=== PATIENT | female | born 1965 | race Caucasian/White ===

== ENCOUNTER 2016-08-12 08:49 | Emergency (ER) | payer BC ==
[2016-08-12 09:20] LABS: APPEARANCE CLEAR (CLEAR); COLOR YELLOW (YELLOW); LEUKOCYTE ESTERASE TRACE (NEGATIVE); SPECIFIC GRAVITY 1.015 (1.005-1.020)
[2016-08-12 09:21] LABS: BILIRUBIN NEGATIVE (NEGATIVE); GLUCOSE 1000 mg/dL (NEGATIVE); KETONE NEGATIVE (NEGATIVE); NITRITE NEGATIVE (NEGATIVE); PROTEIN NEGATIVE (NEGATIVE); UROBILINOGEN NORMAL (NORMAL)
[2016-08-12 09:25] LABS: BACTERIA FEW /hpf (NONE SEEN); EPITHELIAL CELLS OCC /hpf (0-5); MUCUS <1+ /lpf (NONE SEEN); WHITE CELLS - URINE 0-5 /hpf (0-5)
[2016-08-12 09:27] LABS: BASOPHILS 0.3 % (0.0-2.0); EOSINOPHILS 1.7 % (0-7); HEMATOCRIT 36.8 % (36.0-48.0); HEMOGLOBIN 11.8 g/dL (12-16); IMMATURE GRANULOCYTES 0.4 % (0-5); LYMPHOCYTES 16.6 % (15-50); MCH 24.7 pg (26.0-34.0); MCHC 32.1 g/dL (31.0-37.0); MONOCYTES 8.9 % (2-11); NEUTROPHILS 72.1 % (40-80); PLATELET COUNT 330 10x3/uL (130-400); RBC 4.78 10x6/uL (4.00-5.40); RDW 17.1 % (11.5-14.5); WBC 13.7 10x3/uL (4.8-10.8)
[2016-08-12 09:49] LABS: ALBUMIN 3.2 g/dL (3.4-5.0); ALKALINE PHOSPHATASE 64 U/L (46-116); ALT (SGPT) 18 U/L (10-68); AMYLASE - SERUM 46 U/L (25-115); CALC OSMOLALITY 274 mosm/kg (275-300); CALCIUM 9.1 mg/dL (8.5-10.1); CARBON DIOXIDE 23.7 mmol/L (21.0-32.0); CHLORIDE - SERUM 103 mmol/L (98-107); CREATININE - SERUM 0.8 mg/dL (0.6-1.3); GLUCOSE 136 mg/dL (74-106); LIPASE 68 U/L (73-393); POTASSIUM - SERUM 3.6 mmol/L (3.5-5.1); PROTEIN - SERUM 7.6 g/dL (6.4-8.2); SODIUM 137 mmol/L (136-145); UREA NITROGEN 10 mg/dL (7-18); eGFR NON AFRICAN AMERICAN 80 mL/min (90-120)
[2016-08-12 10:16] LABS: UDS - AMPHET NEGATIVE QUAL (NEGATIVE); UDS - BARB NEGATIVE QUAL (NEGATIVE); UDS - BENZO NEGATIVE QUAL (NEGATIVE); UDS - COCAINE NEGATIVE QUAL (NEGATIVE); UDS - METH NEGATIVE QUAL (NEGATIVE); UDS - OPIATE NEGATIVE QUAL (NEGATIVE); UDS - PCP NEGATIVE QUAL (NEGATIVE); UDS - THC NEGATIVE QUAL (NEGATIVE)
== END 2016-08-12 12:45 | disposition home or self-care (01) ==
LOC: D.ER 08:49
PROVIDERS: Family Medicine
DX: K52.9 Noninfective gastroenteritis and colitis, unspecified (principal); I10 Essential (primary) hypertension; E78.5 Hyperlipidemia, unspecified; E11.9 Type 2 diabetes mellitus without complications; K51.90 Ulcerative colitis, unspecified, without complications

== ENCOUNTER → 2017-04-23 15:31 | Outpatient (CLI) | payer MEDICAID | END | disposition home or self-care (01) | LOC: D.MAMMO 04-19 16:00 | DX: Z12.31 Encounter for screening mammogram for malignant neoplasm of breast (principal) ==

== ENCOUNTER → 2017-06-12 15:10 | Outpatient (CLI) | payer MEDICAID | END | disposition home or self-care (01) | LOC: D.RAD 14:45 | DX: R05 Cough (principal) ==

== ENCOUNTER 2017-08-29 06:30 | Day surgery (SDC) | payer MEDICAID ==
[2017-08-28 13:13] LABS: HEMATOCRIT 41.2 % (36.0-48.0); HEMOGLOBIN 13.5 g/dL (12-16); MCH 26.8 pg (26.0-34.0); MCHC 32.8 g/dL (31.0-37.0); MCV 81.7 fL (80.0-100.0); MEAN PLATELET VOLUME 11.1 fL (7.4-10.4); RBC 5.04 10x6/uL (4.00-5.40); RDW 14.6 % (11.5-14.5); WBC 5.6 10x3/uL (4.8-10.8)
[2017-08-28 13:45] LABS: ANION GAP 14.5 mmol/L (8-16); CALCIUM 9.9 mg/dL (8.5-10.1); CARBON DIOXIDE 25.2 mmol/L (21.0-32.0); CREATININE - SERUM 0.9 mg/dL (0.6-1.3); POTASSIUM - SERUM 4.7 mmol/L (3.5-5.1)
[~2017-08-29] VITALS: Ht 177.8 cm; Wt 101.6 kg
[~2017-08-29 06:30] MED LIST: ALDACTONE50 MG PO; CO Q-10100 MG PO; DIGESTIVE ADVANTAGE PO; ESTRACE 0.5 MG0.5 MG PO; GABAPENTIN100 MG PO; GLIMEPIRIDE4 MG PO; GLUCOPHAGE1000 MG PO; IBUPROFEN800 MG PO; OMEPRAZOLE20 M1 PO; SYMBICORT 16010.2 GM INH; TRICOR145 MG PO; VENTOLIN HFA18 GM INH; ZESTRIL10 MG PO; ZOCOR40 MG PO; ZYRTEC10 MG PO
[2017-08-29 07:26] VITALS: BP 126/69; Ht 177.8 cm; Wt 101.6 kg
[2017-08-29] MEDS ORDERED: CYCLOBENZAPRINE10 MG PO (10:16)
[2017-08-29] MEDS ORDERED: HYDROCODON-ACE1 EAC7 PO (10:16)
== END 2017-08-29 12:50 | disposition home or self-care (01) ==
LOC: D.OPS 06:30 → D.PAN 08:00 → D.OPS 08:30 → D.PAN 08:30 → D.OPS 12:50
PROVIDERS: Anesthesiology
DX: K43.0 Incisional hernia with obstruction, without gangrene (principal); K66.0 Peritoneal adhesions (postprocedural) (postinfection); Z01.812 Encounter for preprocedural laboratory examination

== ENCOUNTER 2018-08-04 16:38 | Emergency (ER) | payer MEDICAID ==
[~2018-08-04] VITALS: Ht 177.8 cm; Wt 98.2 kg
[~2018-08-04 16:38] MED LIST changes: +CYCLOBENZAPRINE10 MG PO; +HYDROCODON-ACE1 EAC7 PO
[2018-08-04 16:42] VITALS: Ht 177.8 cm; Wt 98.2 kg
[2018-08-04] MEDS ORDERED: ELIQUIS5 MG PO (16:45)
[2018-08-04] MEDS ORDERED: ZETIA10 MG PO (16:45)
[2018-08-04] MEDS ORDERED: GLIPIZIDE10 MG PO (16:46)
[2018-08-04] MEDS ORDERED: LEVEMIR IN100 UNITS/ SQ (16:47)
[2018-08-04] MEDS ORDERED: NEURONTIN 300300 MG PO (16:48)
[2018-08-04] MEDS ORDERED: GABAPENTIN100 MG PO (16:49)
[2018-08-04] MEDS ORDERED: FISH OIL 1,0001 CA1 PO (16:50)
[2018-08-04 18:00] LABS: BASOPHILS 0.4 % (0-2); EOSINOPHILS 0.9 % (0-7); HEMATOCRIT 36.4 % (36.0-48.0); IMMATURE GRANULOCYTES 0.3 % (0-5); LYMPHOCYTES 34.3 % (15-50); MCH 26.3 pg (26.0-34.0); MCV 79.6 fL (80.0-100.0); MEAN PLATELET VOLUME 10.1 fL (7.4-10.4); MONOCYTES 9.8 % (2-11); NEUTROPHILS 54.3 % (40-80); RBC 4.57 10x6/uL (4.00-5.40); RDW 14.2 % (11.5-14.5); WBC 10.7 10x3/uL (4.8-10.8)
[2018-08-04 18:01] LABS: PLATELET COUNT 381 10x3/uL (130-400)
[2018-08-04 18:14] LABS: ALBUMIN 3.4 g/dL (3.4-5.0); ANION GAP 10.6 mmol/L (8-16); BILIRUBIN - TOTAL 0.39 mg/dL (0.2-1.3); CALCIUM 9.5 mg/dL (8.5-10.1); CARBON DIOXIDE 27.6 mmol/L (21.0-32.0); CREATININE - SERUM 0.9 mg/dL (0.6-1.3); POTASSIUM - SERUM 3.2 mmol/L (3.5-5.1); PROTEIN - SERUM 7.9 g/dL (6.4-8.2)
[2018-08-04] MEDS ORDERED: AMOXICILLIN875 MG PO (19:54)
[2018-08-04] MEDS ORDERED: HYDROCODON-ACET15 ML PO (19:54)
[2018-08-04 20:14] VITALS: BP 142/81
== END 2018-08-04 20:14 | disposition home or self-care (01) ==
LOC: D.ER 16:38
PROVIDERS: Family Medicine
DX: J03.90 Acute tonsillitis, unspecified (principal)

== ENCOUNTER 2018-08-05 15:08 | Emergency (ER) | payer MEDICAID ==
[~2018-08-05] VITALS: Ht 177.8 cm; Wt 97.7 kg
[~2018-08-05 15:08] MED LIST changes: +AMOXICILLIN875 MG PO; +ELIQUIS5 MG PO; +FISH OIL 1,0001 CA1 PO; +GLIPIZIDE10 MG PO; +HYDROCODON-ACET15 ML PO; +LEVEMIR IN100 UNITS/ SQ; +NEURONTIN 300300 MG PO; +ZETIA10 MG PO
[2018-08-05 15:13] VITALS: Ht 177.8 cm; Wt 97.7 kg
[2018-08-05 21:30] VITALS: BP 139/82
== END 2018-08-05 23:08 | disposition other institution (70) ==
LOC: D.ER 15:08
DX: J36 Peritonsillar abscess (principal); R13.10 Dysphagia, unspecified

== ENCOUNTER 2018-10-21 13:13 | Inpatient (IN) | payer MEDICAID ==
[~2018-10-21] VITALS: Ht 177.8 cm; Wt 98.0 kg
[2018-10-21] MEDS ORDERED: [UNRECOGNIZED DRUG - OTHER] (13:36)
[2018-10-21 14:10] LABS: BASOPHILS 0.2 % (0-2); EOSINOPHILS 0 % (0-7); HEMATOCRIT 37.9 % (36.0-48.0); HEMOGLOBIN 12.6 g/dL (12-16); IMMATURE GRANULOCYTES 0.2 % (0-5); LYMPHOCYTES 14.4 % (15-50); MCH 25.9 pg (26.0-34.0); MCHC 33.2 g/dL (31.0-37.0); MCV 77.8 fL (80.0-100.0); MEAN PLATELET VOLUME 10.4 fL (7.4-10.4); MONOCYTES 3.9 % (2-11); NEUTROPHILS 81.3 % (40-80); PLATELET COUNT 354 10x3/uL (130-400); RBC 4.87 10x6/uL (4.00-5.40); RDW 15.9 % (11.5-14.5); WBC 10.4 10x3/uL (4.8-10.8)
[2018-10-21 14:29] LABS: APPEARANCE CLEAR (CLEAR); BILIRUBIN NEGATIVE (NEGATIVE); COLOR YELLOW (YELLOW); GLUCOSE NEGATIVE (NEGATIVE); KETONE MODERATE mg/dL (NEGATIVE); NITRITE NEGATIVE (NEGATIVE); PROTEIN NEGATIVE (NEGATIVE); UROBILINOGEN NORMAL (NORMAL)
[2018-10-21 14:30] LABS: AMORPHOUS SEDIMENT <1+ /lpf (NONE SEEN); EPITHELIAL CELLS OCC /hpf (0-5); RED CELLS - URINE 0-5 /hpf (0-5); WHITE CELLS - URINE 0-5 /hpf (0-5)
[2018-10-21 14:37] LABS: ALBUMIN 4.1 g/dL (3.4-5.0); ALKALINE PHOSPHATASE 55 U/L (46-116); ALT (SGPT) 26 U/L (10-68); CALC OSMOLALITY 274 mosm/kg (275-300); CALCIUM 9.8 mg/dL (8.5-10.1); CARBON DIOXIDE 26.4 mmol/L (21.0-32.0); CHLORIDE - SERUM 102 mmol/L (98-107); CREATININE - SERUM 0.8 mg/dL (0.6-1.3); POTASSIUM - SERUM 3.8 mmol/L (3.5-5.1); PROTEIN - SERUM 8.2 g/dL (6.4-8.2); SODIUM 137 mmol/L (136-145); UREA NITROGEN 8 mg/dL (7-18); eGFR NON AFRICAN AMERICAN 80 mL/min (90-120)
[2018-10-21 14:38] LABS: GLUCOSE 160 mg/dL (74-106)
[2018-10-21 14:40] LABS: AMYLASE - SERUM 48 U/L (25-115); LIPASE 59 U/L (73-393); TROPONIN-I < 0.017 ng/mL (0.000-0.060)
--- NOTE | 2018-10-21 20:00 | NUR ---
VERBAL ORDER FROM DR FISCHER TO NOT PLACE NG TUBE DUE TO HER HAVING BOWEL SOUNDS AND ABD BEING SOFT.
[2018-10-21 21:57] VITALS: BP 140/68; BMI 31.0
[2018-10-21] MEDS ORDERED: OZEMPIC (23:32)
[2018-10-22 05:58] VITALS: BP 133/83
[2018-10-22 06:12] LABS: BASOPHILS 0.2 % (0-2); EOSINOPHILS 0.2 % (0-7); HEMATOCRIT 32.4 % (36.0-48.0); HEMOGLOBIN 10.7 g/dL (12-16); IMMATURE GRANULOCYTES 0.1 % (0-5); LYMPHOCYTES 19.2 % (15-50); MCH 25.5 pg (26.0-34.0); MCV 77.3 fL (80.0-100.0); MONOCYTES 6.3 % (2-11); PLATELET COUNT 331 10x3/uL (130-400); RBC 4.19 10x6/uL (4.00-5.40); RDW 15.8 % (11.5-14.5); WBC 10.3 10x3/uL (4.8-10.8)
[2018-10-22 06:29] LABS: ALBUMIN 3.4 g/dL (3.4-5.0); ALKALINE PHOSPHATASE 42 U/L (46-116); BILIRUBIN - TOTAL 0.44 mg/dL (0.2-1.3); CALC OSMOLALITY 282 mosm/kg (275-300); CALCIUM 8.9 mg/dL (8.5-10.1); CARBON DIOXIDE 24.4 mmol/L (21.0-32.0); CHLORIDE - SERUM 105 mmol/L (98-107); CREATININE - SERUM 0.8 mg/dL (0.6-1.3); GLUCOSE 144 mg/dL (74-106); MAGNESIUM - SERUM 1.5 mg/dL (1.8-2.4); POTASSIUM - SERUM 3.5 mmol/L (3.5-5.1); PROTEIN - SERUM 6.5 g/dL (6.4-8.2); SODIUM 141 mmol/L (136-145); UREA NITROGEN 10 mg/dL (7-18); eGFR NON AFRICAN AMERICAN 80 mL/min (90-120)
[2018-10-22 06:31] LABS: ALT (SGPT) 19 U/L (10-68)
[2018-10-22 08:12] VITALS: BP 145/81
--- NOTE | 2018-10-22 09:47 | NUR ---
PATIENT TEMP AT THIS TIME 99.1. WILL CONTINUE TO MONITOR
--- NOTE | 2018-10-22 10:43 | NUR ---
PATIENT UP IN CHAIR. FAMILY IN ROOM. DENIES ANY NEEDS. CL AND PHONE IN REACH. WCTM
[2018-10-22 12:33] VITALS: BMI 30.9
[2018-10-22 12:54] VITALS: BP 156/86
[2018-10-22 13:13] VITALS: Ht 177.8 cm; Wt 98.0 kg
--- NOTE | 2018-10-22 15:32 | MORECARE ---
CASE MANAGEMENT DISCHARGE SUMMARY PATIENT: JUANCHO PEREZ UNIT: [id number] ADM DATE: 10/21/18 AGE: 53 : 67 SEX: F ROOM/BED: D.2203 AUTHOR: NATIVIDAD,DOC PHYSICIAN: REFERRING PHYSICIAN: CURT FISCHER DO DATE OF SERVICE: 10/22/18 Discharge Plan Patient Name: JUANCHO PEREZ Facility: [facility]:[place] : 1965 Planned Disposition: Home or Self Care Anticipated Discharge Date: Discharge Date: Expected LOS: Initial Reviewer: [email or web address] Initial Review Date: 10/21/2018 Generated: 10/22/18 4:32 pm Comments DCP- Discharge Planning Updated by [email or web address]: Quin Antoine on 10/22/18 2:[address] Patient Name: JUANCHO PEREZ Admission Status: ER Accout number: [id number] Admission Date: 10-21-2018 : 1965 Admission Diagnosis: Attending: CURT FISCHER Current LOS: 1 Anticipated DC Date: Planned Disposition: Home or Self Care Primary Insurance: [employer] [facility] OPTIONS JONATHON Discharge Planning Comments: CM met with patient to complete initial dc planning assessment. CM educated patient on the CM role and verbal consent given by patient to complete assessment. Patient lives at home with her where she is independent with her care. At discharge patient plans to return home and feels this is a safe discharge. Her will be her starting gate driver home. CM discussed availability of home health, rehab services, and medical equipment. Patient denied known discharge needs at this time. CM will continue to follow and will assist as needed with dc plans/needs. Multimedia Author: Quin Antoine DCPIA - Discharge Planning Initial Assessment Updated by [id number]: Quin Antoine on 10/22/18 3:30 pm * Is the patient Alert and Oriented? Yes * How many steps to enter\exit or inside your home? * PCP Laurita Gonzalez- [facility] * Pharmacy [email or web address] on [facility] * Preadmission Environment Home with Family * ADLs Independent * Equipment None * List name and contact numbers for known caregivers / representatives who currently or will assist patient after discharge: Maxi () Maddi Avery [phone] * Verbal permission to speak to the caregivers and representatives has been obtained from the patient. N/A * Community resources currently utilized None * Additional services required to return to the preadmission environment? No * Can the patient safely return to the preadmission environment? Yes * Has this patient been hospitalized within the prior 30 days at any hospital? No Patient Name: JUANCHO PEREZ Page [phone] at 1532 All edits/amendments must be made on the electronic document DICTATION DATE: 10/22/18 1531 MIRROR MAKER: RANDY 10/22/18 1531 RPT#: [id number] DC DATE: STATUS: ADM IN [facility] [address] [place] [address] END OF REPORT
[2018-10-22 16:34] VITALS: BP 138/68
[2018-10-22 20:55] VITALS: BP 133/72
--- NOTE | 2018-10-22 21:00 | NUR ---
SUPINE IN BED A&O X 4. REPORTS PAIN LEVEL OF 6/10. FSBS 153. HAD QUESTIONS ABOUT NOT GETTING OTHER INSULINS. INFORMED PT THAT WITH HER NOT EATING, HER SUGAR IS LIKELY TO DROP IF SHE CONTINUES RECIEVING ALL HER OTHER SCHEDULED INSULINS. PT VERBALIZED UNDERSTANDING. WILL CONTINUE TO MONITOR.
[2018-10-23 01:22] VITALS: BP 124/64
[2018-10-23 05:05] LABS: BASOPHILS 0.1 % (0-2); EOSINOPHILS 0.2 % (0-7); HEMATOCRIT 32.6 % (36.0-48.0); HEMOGLOBIN 10.6 g/dL (12-16); IMMATURE GRANULOCYTES 0.2 % (0-5); MCH 25.1 pg (26.0-34.0); MCHC 32.5 g/dL (31.0-37.0); MCV 77.1 fL (80.0-100.0); MONOCYTES 8.2 % (2-11); NEUTROPHILS 78.3 % (40-80); PLATELET COUNT 312 10x3/uL (130-400); RBC 4.23 10x6/uL (4.00-5.40); WBC 12.7 10x3/uL (4.8-10.8)
[2018-10-23 05:32] LABS: APTT 30.7 SECONDS (22.8-39.4); INR 1.32 (0.85-1.17); PROTIME 15.8 SECONDS (11.6-15.0)
[2018-10-23 05:34] LABS: ALBUMIN 2.8 g/dL (3.4-5.0); ALKALINE PHOSPHATASE 43 U/L (46-116); BILIRUBIN - TOTAL 0.52 mg/dL (0.2-1.3); CALC OSMOLALITY 279 mosm/kg (275-300); CALCIUM 8.7 mg/dL (8.5-10.1); CARBON DIOXIDE 23.7 mmol/L (21.0-32.0); CHLORIDE - SERUM 103 mmol/L (98-107); CREATININE - SERUM 0.7 mg/dL (0.6-1.3); GLUCOSE 148 mg/dL (74-106); MAGNESIUM - SERUM 1.7 mg/dL (1.8-2.4); POTASSIUM - SERUM 3.1 mmol/L (3.5-5.1); PROTEIN - SERUM 6.7 g/dL (6.4-8.2); SODIUM 139 mmol/L (136-145); UREA NITROGEN 10 mg/dL (7-18); eGFR NON AFRICAN AMERICAN > 90 mL/min (90-120)
[2018-10-23 05:35] LABS: ALT (SGPT) 13 U/L (10-68)
[2018-10-23 05:55] VITALS: BP 150/84
--- NOTE | 2018-10-23 09:00 | NUR ---
ASSESSMENT PER FLOW SHEET. PT IS WITHOUT DISTRESS.MONITOR
[2018-10-23 09:45] VITALS: BP 149/83
--- NOTE | 2018-10-23 10:35 | NUR ---
DR MEHTA TO SEE PT. CONSENTS TO CHART
--- NOTE | 2018-10-23 11:45 | NUR ---
TO OR VIA BED
[2018-10-23 14:12] VITALS: BP 148/86
[2018-10-23 15:53] VITALS: BP 145/80
--- NOTE | 2018-10-23 15:59 | NUR ---
BACK FROM PACU. VSS,SEE GRAPHICS.AWAKENS INT.LAP SITES TO ABD X4 INTACT. SHERICE RLQ OF ABDOMEN WITH MINIMAL RED DRAINAGE IN BULB.MONITOR
--- NOTE | 2018-10-23 19:15 | NUR ---
PATIENT REFUSED BREATHING TREATMENT, STATED THAT SHE WAS NOT FEELING WELL, THAT SHE HAD JUST GOT BACK FROM SURGERY
--- NOTE | 2018-10-23 20:00 | NUR ---
PT SITTING UP IN BED WITHOUT DISTRESS, ALERT AND ORIENTED. STATES PAIN 4/10 IN ABD. IV RIGHT FA INFUSING NS @ 125. 4 LAP SITES TO ABD CDI, SHERICE DRAIN TO RLQ WITH BLOODY DRAINAGE. PT UP AD RICCARDO AND VOIDING WITHOUT DIFFICULTY. TOLERATED ADVANCING DIET. DENIES OTHER NEEDS. CL IN REACH, WILL CTM
--- NOTE | 2018-10-23 20:36 | NUR ---
TOLERTAING CLEAR LIQUID DIET. PT IS WITHOUT DISTRESS.CONT PLAN OF CARE
[2018-10-23 20:51] VITALS: BP 143/99
[2018-10-24 01:35] VITALS: BP 121/75
[2018-10-24 05:46] LABS: BASOPHILS 0.1 % (0-2); EOSINOPHILS 0.2 % (0-7); HEMATOCRIT 28.1 % (36.0-48.0); HEMOGLOBIN 8.8 g/dL (12-16); IMMATURE GRANULOCYTES 0.3 % (0-5); LYMPHOCYTES 12.5 % (15-50); MCH 24.6 pg (26.0-34.0); MCHC 31.3 g/dL (31.0-37.0); MCV 78.7 fL (80.0-100.0); MEAN PLATELET VOLUME 10.7 fL (7.4-10.4); MONOCYTES 10.3 % (2-11); NEUTROPHILS 76.6 % (40-80); PLATELET COUNT 290 10x3/uL (130-400); RBC 3.57 10x6/uL (4.00-5.40); RDW 16.3 % (11.5-14.5); WBC 11.2 10x3/uL (4.8-10.8)
[2018-10-24 06:31] VITALS: BP 130/74
[2018-10-24 06:36] LABS: ALBUMIN 2.3 g/dL (3.4-5.0); ALKALINE PHOSPHATASE 41 U/L (46-116); BILIRUBIN - TOTAL 0.38 mg/dL (0.2-1.3); CALC OSMOLALITY 282 mosm/kg (275-300); CALCIUM 8.2 mg/dL (8.5-10.1); CARBON DIOXIDE 24.5 mmol/L (21.0-32.0); CHLORIDE - SERUM 107 mmol/L (98-107); CREATININE - SERUM 0.6 mg/dL (0.6-1.3); GLUCOSE 109 mg/dL (74-106); MAGNESIUM - SERUM 1.9 mg/dL (1.8-2.4); POTASSIUM - SERUM 3.4 mmol/L (3.5-5.1); SODIUM 142 mmol/L (136-145); UREA NITROGEN 9 mg/dL (7-18); eGFR NON AFRICAN AMERICAN > 90 mL/min (90-120)
[2018-10-24 06:38] LABS: ALT (SGPT) 58 U/L (10-68)
[2018-10-24 10:10] VITALS: BP 152/91
--- NOTE | 2018-10-24 12:30 | NUR ---
CAME TO ME WITH THE CONCERN THAT HIS WAS NOT ABLE TO FEED HERSELF BECAUSE OF THE IV BEING IN HER LEFT HAND. SHE DID NOT BRING THIS CONCERN UP TO ME. HE MENTIONED THAT SHE NEEDED HELP TO THE BATHROOM. I AGREED. I ALSO TOLD HIM I WAS JUST IN THERE TO HELP HER TO THE RESTROOM. SAID THAT I WOULD SALINE LOCK HER SO SHE COULD EAT EASIER AND SEE IF THAT WOULD HELP.
--- NOTE | 2018-10-24 13:22 | NUR ---
Nutrition Follow Up: Chart reviewed. Pt is POD 1 Lap Teresa. Diet just advanced to ADA. Wt stable Labs reviewed Meds noted including Flagyl Rec continue current diet as tolerated. RD following.
[2018-10-24 14:30] VITALS: BP 121/79
[2018-10-24 17:59] VITALS: BP 153/89
[2018-10-24 19:58] VITALS: BP 168/85
[2018-10-25] VITALS (7 sets, daily range): BP systolic 150–186; BP diastolic 83–103
[2018-10-25 03:55] LABS: BASOPHILS 0.3 % (0-2); EOSINOPHILS 4.9 % (0-7); HEMATOCRIT 23.9 % (36.0-48.0); IMMATURE GRANULOCYTES 0.3 % (0-5); LYMPHOCYTES 20.1 % (15-50); MCH 25.6 pg (26.0-34.0); MCHC 33.5 g/dL (31.0-37.0); MCV 76.4 fL (80.0-100.0); MEAN PLATELET VOLUME 9.6 fL (7.4-10.4); MONOCYTES 9.3 % (2-11); NEUTROPHILS 65.1 % (40-80); PLATELET COUNT 315 10x3/uL (130-400); RBC 3.13 10x6/uL (4.00-5.40); RDW 15.9 % (11.5-14.5); WBC 11.7 10x3/uL (4.8-10.8)
[2018-10-25 04:10] LABS: ALBUMIN 2.2 g/dL (3.4-5.0); ALKALINE PHOSPHATASE 40 U/L (46-116); ALT (SGPT) 45 U/L (10-68); BILIRUBIN - TOTAL 0.35 mg/dL (0.2-1.3); CALCIUM 8.1 mg/dL (8.5-10.1); CARBON DIOXIDE 28.7 mmol/L (21.0-32.0); CHLORIDE - SERUM 106 mmol/L (98-107); CREATININE - SERUM 0.7 mg/dL (0.6-1.3); MAGNESIUM - SERUM 2.2 mg/dL (1.8-2.4); POTASSIUM - SERUM 3.2 mmol/L (3.5-5.1); SODIUM 143 mmol/L (136-145); UREA NITROGEN 8 mg/dL (7-18); eGFR NON AFRICAN AMERICAN > 90 mL/min (90-120)
[2018-10-25 04:13] LABS: CALC OSMOLALITY 286 mosm/kg (275-300); GLUCOSE 172 mg/dL (74-106)
--- NOTE | 2018-10-25 08:01 | NUR ---
AWAKE AND ALERT. UP IN CHAIR AT BEDSIDE. REQUESTED AND GIVNE 4MG MORPHINE SLOW IVP FOR C/O ABDOMINAL AND BACK PAIN LEVEL 8. WILL MONITOR.
--- NOTE | 2018-10-25 09:26 | NUR ---
AWAKE AND ALERT. ORIENTED X3. REPORTS PAIN AT LEVEL 6 NOW. WILL CONTINUE TO MONITOR. CALLED ESEQUIEL FOLEY APN RE BP MEDS. NEW ORDERS RECEIVED. LUNGS ARE CLEAR BILATERALLY, NO COUGH NOTED. SKIN IS INTACT WTIHOUT REDNESS EXCEPT 4 SMALL INSERTION SITES TO ABDOMEN WHICH ARE CLEAN AND DYR WITH SS IN PLACE. IV TO RIGHT AC IS PATETN WITHOUT REDNESS AT INSERTION SITE. BP IS 186/102 MANUAL. GIVEN APRESOLINE IVP PER ORDERS. WILL MONITOR. BREAKFAST SERVED IN ROOM. NOT EATING AT THIS TIME. DENIES NEEDS.
--- NOTE | 2018-10-25 14:00 | NUR ---
REQUESTED AND GIVEN 4MG MORPHINE SLOW IVP. BECAME NAUSEATED WITH DOSE. GIVEN 4MG ZOFRAN SLOW IVP FOR SAME. WILL MONITOR.
--- NOTE | 2018-10-25 14:46 | NUR ---
SHERICE D/C WITHOUT DIFFICULTY INTACT. DENIES NEEDS. NO NAUSEA AT THIS TIME.
[2018-10-26] VITALS: BP 148/88
[2018-10-26 04:00] VITALS: BP 153/88
[2018-10-26 06:15] LABS: BASOPHILS 0.3 % (0-2); EOSINOPHILS 7.9 % (0-7); HEMATOCRIT 24.1 % (36.0-48.0); HEMOGLOBIN 7.9 g/dL (12-16); IMMATURE GRANULOCYTES 0.4 % (0-5); MCH 25.1 pg (26.0-34.0); MCHC 32.8 g/dL (31.0-37.0); MCV 76.5 fL (80.0-100.0); MEAN PLATELET VOLUME 10.1 fL (7.4-10.4); NEUTROPHILS 58.4 % (40-80); PLATELET COUNT 372 10x3/uL (130-400); RBC 3.15 10x6/uL (4.00-5.40); RDW 16.4 % (11.5-14.5); WBC 10.3 10x3/uL (4.8-10.8)
[2018-10-26 06:54] LABS: ALBUMIN 2.2 g/dL (3.4-5.0); ALKALINE PHOSPHATASE 42 U/L (46-116); ALT (SGPT) 34 U/L (10-68); BILIRUBIN - TOTAL 0.36 mg/dL (0.2-1.3); CALC OSMOLALITY 281 mosm/kg (275-300); CALCIUM 8.4 mg/dL (8.5-10.1); CARBON DIOXIDE 27.3 mmol/L (21.0-32.0); CHLORIDE - SERUM 106 mmol/L (98-107); CREATININE - SERUM 0.6 mg/dL (0.6-1.3); GLUCOSE 134 mg/dL (74-106); MAGNESIUM - SERUM 2.4 mg/dL (1.8-2.4); POTASSIUM - SERUM 3.2 mmol/L (3.5-5.1); PROTEIN - SERUM 5.9 g/dL (6.4-8.2); SODIUM 142 mmol/L (136-145); UREA NITROGEN 5 mg/dL (7-18); eGFR NON AFRICAN AMERICAN > 90 mL/min (90-120)
[2018-10-26 09:43] VITALS: BP 158/89
[2018-10-26] MEDS ORDERED: HYDROCODON-ACE1 EAC7 PO (15:03)
--- NOTE | 2018-10-26 17:39 | NUR ---
DISCHARGE PAPERWORK SIGNED, ALL QUESTIONS ANSWERED. IV TO RIGHT AC DC'D, TIP INTACT. ESCORTED OUT BY WHEELCHAIR.
--- NOTE | 2018-10-29 13:10 | MORECARE ---
CASE MANAGEMENT DISCHARGE SUMMARY PATIENT: JUANCHO PEREZ UNIT: [id number] ADM DATE: 10/21/18 AGE: 53 : 67 SEX: F ROOM/BED: D.2203 AUTHOR: NATIVIDADDOC PHYSICIAN: REFERRING PHYSICIAN: CURT FISCHER DO DATE OF SERVICE: 10/29/18 Discharge Plan Patient Name: JUANCHO PEREZ Facility: [facility]:[place] : 1965 Planned Disposition: Home or Self Care Anticipated Discharge Date: Discharge Date: 10/26/2018 Expected LOS: 0 Initial Reviewer: [email or web address] Initial Review Date: 10/21/2018 Generated: 10/29/18 2:09 pm DCP- Discharge Planning Updated by [email or web address]: Quin Antoine on 10/22/18 2:[address] Patient Name: JUANCHO PEREZ Admission Status: ER Accout number: [id number] Admission Date: 10-21-2018 : 1965 Admission Diagnosis: Attending: CURT FISCHER Current LOS: 1 Anticipated DC Date: Planned Disposition: Home or Self Care Primary [facility] Discharge Planning Comments: CM met with patient to complete initial dc planning assessment. CM educated patient on the CM role and verbal consent given by patient to complete assessment. Patient lives at home with her where she is independent with her care. At discharge patient plans to return home and feels this is a safe discharge. Her will be her residential recycle driver home. CM discussed availability of home health, rehab services, and medical equipment. Patient denied known discharge needs at this time. CM will continue to follow and will assist as needed with dc plans/needs. Pad Cutter: Quin Antoine DCPIA - Discharge Planning Initial Assessment Updated by [email or web address]: Quin Antoine on 10/22/18 3:30 pm * Is the patient Alert and Oriented? Yes * How many steps to enter\exit or inside your home? * PCP Laurita Gonzalez- [facility] * Pharmacy [facility] * Preadmission Environment Home with Family * ADLs Independent * Equipment None * List name and contact numbers for known caregivers / representatives who currently or will assist patient after discharge: Maxi () Maddi Avery [phone] * Verbal permission to speak to the caregivers and representatives has been obtained from the patient. N/A * Community resources currently utilized None * Additional services required to return to the preadmission environment? No * Can the patient safely return to the preadmission environment? Yes * Has this patient been hospitalized within the prior 30 days at any hospital? No Last DP export: 10/22/18 2:32 p Patient Name: JUANCHO PEREZ Page [phone] at 1310 All edits/amendments must be made on the electronic document DICTATION DATE: 10/29/18 1309 MULTIMEDIA SERVICES MANAGER: RANDY 10/29/18 1309 RPT#: [id number] NM DATE:10/26/18 STATUS: DIS IN [facility] [address] [place] [address] END OF REPORT
== END 2018-10-26 17:41 | disposition home or self-care (01) | DRG 337 ==
LOC: D.ER 13:13 → D.MS 18:50
PROVIDERS: Emergency Medicine; Surgery; ADMIT Family Medicine; ATTEND Family Medicine
PROC: 0DNW4ZZ Release Peritoneum, Percutaneous Endoscopic Approach (ICD-10-PCS; 2018-10-23)
PROC: 0FT44ZZ Resection of Gallbladder, Percutaneous Endoscopic Approach (ICD-10-PCS; principal; 2018-10-23 11:45)
DX: K56.52 Intestinal adhesions [bands] with complete obstruction (principal); I10 Essential (primary) hypertension; E11.69 Type 2 diabetes mellitus with other specified complication; K81.1 Chronic cholecystitis; D64.9 Anemia, unspecified

== ENCOUNTER 2019-01-02 15:37 | Emergency (ER) | payer MEDICAID ==
[~2019-01-02] VITALS: Ht 177.8 cm; Wt 90.9 kg
[~2019-01-02 15:37] MED LIST changes: +OZEMPIC; +[UNRECOGNIZED DRUG - OTHER]
[2019-01-02 15:51] VITALS: Ht 177.8 cm; Wt 90.9 kg
[2019-01-02] MEDS ORDERED: [UNRECOGNIZED DRUG - OTHER] SQ (15:55)
[2019-01-02] MEDS ORDERED: ROBAXIN500 MG PO (18:36)
[2019-01-02] MEDS ORDERED: TORADOL10 MG PO (18:36)
[2019-01-02 18:52] VITALS: BP 138/84
== END 2019-01-02 18:52 | disposition home or self-care (01) ==
LOC: D.ER 15:37
DX: S39.012A Strain of muscle, fascia and tendon of lower back, initial encounter (principal); V43.52XA Car driver injured in collision with other type car in traffic accident, initial encounter; Y93.89 Activity, other specified; Y92.89 Other specified places as the place of occurrence of the external cause; M17.12 Unilateral primary osteoarthritis, left knee

== ENCOUNTER 2019-01-16 22:46 | Inpatient (IN) | payer MEDICAID ==
[~2019-01-16] VITALS: Ht 177.8 cm; Wt 92.5 kg
[~2019-01-16 22:46] MED LIST changes: +ROBAXIN500 MG PO; +TORADOL10 MG PO; +[UNRECOGNIZED DRUG - OTHER] SQ
[2019-01-16 23:06] LABS: BASOPHILS 0.1 % (0-2); EOSINOPHILS 0.1 % (0-7); HEMATOCRIT 37.5 % (36.0-48.0); HEMOGLOBIN 12.6 g/dL (12-16); IMMATURE GRANULOCYTES 0.3 % (0-5); LYMPHOCYTES 8.8 % (15-50); MCH 25.6 pg (26.0-34.0); MCHC 33.6 g/dL (31.0-37.0); MCV 76.2 fL (80.0-100.0); MEAN PLATELET VOLUME 9.7 fL (7.4-10.4); MONOCYTES 5.5 % (2-11); NEUTROPHILS 85.2 % (40-80); PLATELET COUNT 431 10x3/uL (130-400); RBC 4.92 10x6/uL (4.00-5.40); RDW 17.4 % (11.5-14.5); WBC 17.7 10x3/uL (4.8-10.8)
[2019-01-16 23:21] LABS: ALBUMIN 4.1 g/dL (3.4-5.0); ALKALINE PHOSPHATASE 67 U/L (46-116); ALT (SGPT) 23 U/L (10-68); CALC OSMOLALITY 272 mosm/kg (275-300); CALCIUM 10.8 mg/dL (8.5-10.1); CARBON DIOXIDE 27.8 mmol/L (21.0-32.0); CHLORIDE - SERUM 96 mmol/L (98-107); POTASSIUM - SERUM 4.6 mmol/L (3.5-5.1); PROTEIN - SERUM 8.7 g/dL (6.4-8.2); SODIUM 134 mmol/L (136-145); UREA NITROGEN 12 mg/dL (7-18); eGFR NON AFRICAN AMERICAN 61 mL/min (90-120)
[2019-01-16 23:22] LABS: GLUCOSE 195 mg/dL (74-106)
[2019-01-16 23:25] LABS: AMYLASE - SERUM 62 U/L (25-115); LIPASE 81 U/L (73-393); TROPONIN-I < 0.017 ng/mL (0.000-0.060)
--- NOTE | 2019-01-17 00:48 | NUR ---
PT TO RADIOLOGY.
--- NOTE | 2019-01-17 01:07 | NUR ---
PT RETURNED FROM RADIOLOGY.
[2019-01-17 01:14] LABS: APPEARANCE CLOUDY (CLEAR); BILIRUBIN NEGATIVE (NEGATIVE); COLOR YELLOW (YELLOW); GLUCOSE 50 mg/dL (NEGATIVE); KETONE NEGATIVE (NEGATIVE); NITRITE NEGATIVE (NEGATIVE); PROTEIN 1+ mg/dL (NEGATIVE); UROBILINOGEN NORMAL (NORMAL)
[2019-01-17 01:15] LABS: AMORPHOUS SEDIMENT >1+ /lpf (NONE SEEN); BACTERIA MODERATE /hpf (NONE SEEN); EPITHELIAL CELLS 0-5 /hpf (0-5); HYALINE CAST 0-5 /lpf (NONE SEEN); MUCUS <1+ /lpf (NONE SEEN); RED CELLS - URINE 0-5 /hpf (0-5); WHITE CELLS - URINE 0-5 /hpf (0-5)
--- NOTE | 2019-01-17 03:15 | NUR ---
PT ARRIVED TO FLOOR AOX4, AMBULATED TO BED WITHOUT DIFFICULTY. PAIN IN ABD 7/10. ABD DISTENDED, ABSENT IN UPPER QUADS, HYPO IN LOWER. PT NAUSEOUS AND GAGGING BUT NOT HAVING ANY EMESIS. IV LEFT AC INFUSING NS @ 200. REMINDED PT SHE IS NPO, VERBALIZED UNDERSTANDING. DENIES NEEDS. CL IN REACH, WILL CTM
[2019-01-17 03:23] VITALS: BMI 29.3
[2019-01-17 04:00] VITALS: BP 124/70
--- NOTE | 2019-01-17 07:40 | NUR ---
PT RESTING IN BED. DENIES ANY NEEDS. NPO. NO S/S OF ACUTE DISTRESS. CL IN PLACE.
[2019-01-17 08:01] VITALS: BP 112/59
[2019-01-17] MEDS ORDERED: VOLTAREN100 GM (08:05)
[2019-01-17 10:44] LABS: BASOPHILS 0.2 % (0-2); EOSINOPHILS 2.2 % (0-7); HEMOGLOBIN 10.3 g/dL (12-16); IMMATURE GRANULOCYTES 0.2 % (0-5); LYMPHOCYTES 21.7 % (15-50); MCH 25.2 pg (26.0-34.0); MCHC 33.2 g/dL (31.0-37.0); MEAN PLATELET VOLUME 9.3 fL (7.4-10.4); MONOCYTES 8.4 % (2-11); NEUTROPHILS 67.3 % (40-80); PLATELET COUNT 352 10x3/uL (130-400); RBC 4.08 10x6/uL (4.00-5.40); RDW 17.1 % (11.5-14.5)
[2019-01-17 10:45] LABS: WBC 9.7 10x3/uL (4.8-10.8)
[2019-01-17 12:04] VITALS: Ht 177.8 cm; Wt 92.5 kg
[2019-01-17 13:00] VITALS: BP 117/73
[2019-01-17 16:41] VITALS: BP 156/95
--- NOTE | 2019-01-17 18:09 | NUR ---
PT RESTING IN BED. NG TO LIS. NO S/S OF ACUTE DISTRESS. CL IN PLACE.
--- NOTE | 2019-01-17 19:00 | NUR ---
BEDSIDE REPORT RECEIVED AND CARE OF PT ASSUMED. PT SITTING UP ON SIDE OF BED VISITING WITH FAMILY MEMBERS. IV TO LEFT AC PATENT WITH NS INFUSING AT 200 ML/HR. NG TUBE IN LEFT NARE TO LIS WITH DARK LIQUID IN COLLECTION CANNISTER. WILL MONITOR FOR NEEDS.
--- NOTE | 2019-01-17 19:36 | NUR ---
MORPHINE IVP GIVEN PER REQUEST FOR PAIN. WILL CONTINUE TO MONITOR FOR NEEDS.
[2019-01-17 20:00] VITALS: BP 146/94
--- NOTE | 2019-01-17 20:33 | NUR ---
HS MEDICATIONS GIVEN. WILL CONTINUE TO MONITOR FOR NEEDS.
[2019-01-18] VITALS: BP 145/82
[2019-01-18 04:00] VITALS: BP 154/80
[2019-01-18 05:29] LABS: BASOPHILS 0.3 % (0-2); EOSINOPHILS 5.9 % (0-7); HEMATOCRIT 29.9 % (36.0-48.0); HEMOGLOBIN 9.6 g/dL (12-16); IMMATURE GRANULOCYTES 0.1 % (0-5); LYMPHOCYTES 21.4 % (15-50); MCH 24.6 pg (26.0-34.0); MCHC 32.1 g/dL (31.0-37.0); MCV 76.7 fL (80.0-100.0); MEAN PLATELET VOLUME 9.3 fL (7.4-10.4); MONOCYTES 9.4 % (2-11); NEUTROPHILS 62.9 % (40-80); PLATELET COUNT 333 10x3/uL (130-400); RDW 16.9 % (11.5-14.5); WBC 7.7 10x3/uL (4.8-10.8)
[2019-01-18 05:49] LABS: ALBUMIN 2.8 g/dL (3.4-5.0); ALKALINE PHOSPHATASE 48 U/L (46-116); ALT (SGPT) 16 U/L (10-68); BILIRUBIN - TOTAL 0.25 mg/dL (0.2-1.3); CALC OSMOLALITY 276 mosm/kg (275-300); CALCIUM 8.8 mg/dL (8.5-10.1); CARBON DIOXIDE 28.3 mmol/L (21.0-32.0); CHLORIDE - SERUM 102 mmol/L (98-107); CREATININE - SERUM 0.8 mg/dL (0.6-1.3); GLUCOSE 119 mg/dL (74-106); POTASSIUM - SERUM 3.6 mmol/L (3.5-5.1); PROTEIN - SERUM 6.9 g/dL (6.4-8.2); SODIUM 139 mmol/L (136-145); UREA NITROGEN 7 mg/dL (7-18); eGFR NON AFRICAN AMERICAN 79 mL/min (90-120)
--- NOTE | 2019-01-18 08:03 | NUR ---
PT RESTING IN BED. PAIN TO L SIDE OF HEAD. TYLENOL GIVEN PER MD ORDER. NGTUBE TO L NARE TO LIS. NO S/S OF ACUTE DISTRESS. CL IN PLACE.
[2019-01-18 08:13] VITALS: BP 150/83
--- NOTE | 2019-01-18 09:54 | NUR ---
CALLED Minnie FOLEY APN ABOUT PT "THE MORPHINE IS MAKING ME FEEL WEIRD." TO DC MORPHINE. DILAUDID 1MG Q4PRN. NO S/S OF ACUTE DISTRESS. CL IN PLACE.
[2019-01-18 13:21] VITALS: BP 150/83
[2019-01-18 16:11] VITALS: BP 154/79
--- NOTE | 2019-01-18 18:58 | NUR ---
PT RESTING IN BED WITH EYES CLOSED. AROUSED BY VERBAL STIMULI. NO S/S OF ACUTE DISTRESS. CL IN PLACE.
--- NOTE | 2019-01-18 19:00 | NUR ---
BEDSIDE REPORT RECEIVED AND CARE OF PT ASSUMED. PT LYING IN HIGH LINDSEY'S POSITION. IV TO LEFT AC PATENT WITH PROCAL INFUSING AT 50 ML/HR AND NS INFUSING AT 200 ML/HR. NG TUBE IN LEFT NARE TO LIS. WILL MONITOR FOR NEEDS.
[2019-01-18 19:45] VITALS: BP 154/94
--- NOTE | 2019-01-18 19:49 | NUR ---
GAVE DILAUDID IVP PER REQUEST FOR PAIN.
--- NOTE | 2019-01-18 20:02 | NUR ---
GAVE ZOFRAN IVP PER REQUEST FOR NAUSEA.
--- NOTE | 2019-01-18 21:09 | NUR ---
HS MEDICATIONS GIVEN. FSBS 119 REQUIRING NO COVERAGE PER SLIDING SCALE.
[2019-01-19] VITALS (7 sets, daily range): BP systolic 143–166; BP diastolic 77–93
[2019-01-19 06:09] LABS: BASOPHILS 0.3 % (0-2); EOSINOPHILS 1.8 % (0-7); HEMATOCRIT 29.7 % (36.0-48.0); HEMOGLOBIN 9.6 g/dL (12-16); IMMATURE GRANULOCYTES 0.3 % (0-5); LYMPHOCYTES 25.6 % (15-50); MCH 24.7 pg (26.0-34.0); MCHC 32.3 g/dL (31.0-37.0); MCV 76.3 fL (80.0-100.0); MEAN PLATELET VOLUME 9.7 fL (7.4-10.4); MONOCYTES 9.5 % (2-11); NEUTROPHILS 62.5 % (40-80); PLATELET COUNT 367 10x3/uL (130-400); RBC 3.89 10x6/uL (4.00-5.40); RDW 17.1 % (11.5-14.5); WBC 7.6 10x3/uL (4.8-10.8)
[2019-01-19 06:29] LABS: ALBUMIN 2.8 g/dL (3.4-5.0); ALKALINE PHOSPHATASE 46 U/L (46-116); ALT (SGPT) 14 U/L (10-68); BILIRUBIN - TOTAL 0.31 mg/dL (0.2-1.3); CALC OSMOLALITY 274 mosm/kg (275-300); CALCIUM 8.9 mg/dL (8.5-10.1); CARBON DIOXIDE 27.9 mmol/L (21.0-32.0); CHLORIDE - SERUM 101 mmol/L (98-107); CREATININE - SERUM 0.7 mg/dL (0.6-1.3); GLUCOSE 118 mg/dL (74-106); POTASSIUM - SERUM 3.4 mmol/L (3.5-5.1); PROTEIN - SERUM 6.9 g/dL (6.4-8.2); SODIUM 138 mmol/L (136-145); UREA NITROGEN 6 mg/dL (7-18); eGFR NON AFRICAN AMERICAN > 90 mL/min (90-120)
--- NOTE | 2019-01-19 07:46 | NUR ---
ALERT AND ORIENTED X4N/G TUBE TO LOW INTERMITTANT SUCTION. DILAUDID AND ZOFRAN GIVEN PRN FOR ABDOMINAL APIN AND NAUSEA AND EFFECTIVE. IVF INFUSING TO LT. A/C AT PRESCRIBED RATE WITH NO S/S OF INFECTION/INFILTRATION. NO PERIPHERAL EDEMA. LUNGS CTA. HYPOACTIVE BS TO LUQ ANTERIOR. PT. STATES DOES HAVE FLATULANCE. ENCOURAGED TO AMBULATE AND CALL FOR ASSIST.
[2019-01-20] VITALS (10 sets, daily range): BP systolic 112–165; BP diastolic 66–89
[2019-01-20 05:39] LABS: BASOPHILS 0.3 % (0-2); EOSINOPHILS 1.6 % (0-7); HEMATOCRIT 29.6 % (36.0-48.0); HEMOGLOBIN 9.5 g/dL (12-16); IMMATURE GRANULOCYTES 0.1 % (0-5); MCH 24.5 pg (26.0-34.0); MCHC 32.1 g/dL (31.0-37.0); MCV 76.5 fL (80.0-100.0); MEAN PLATELET VOLUME 9.5 fL (7.4-10.4); PLATELET COUNT 388 10x3/uL (130-400); RBC 3.87 10x6/uL (4.00-5.40); RDW 16.9 % (11.5-14.5); WBC 7.4 10x3/uL (4.8-10.8)
[2019-01-20 06:01] LABS: ALBUMIN 2.9 g/dL (3.4-5.0); ALKALINE PHOSPHATASE 46 U/L (46-116); ALT (SGPT) 14 U/L (10-68); BILIRUBIN - TOTAL 0.26 mg/dL (0.2-1.3); CALC OSMOLALITY 276 mosm/kg (275-300); CALCIUM 8.8 mg/dL (8.5-10.1); CARBON DIOXIDE 27.1 mmol/L (21.0-32.0); CHLORIDE - SERUM 101 mmol/L (98-107); CREATININE - SERUM 0.7 mg/dL (0.6-1.3); GLUCOSE 161 mg/dL (74-106); POTASSIUM - SERUM 3.3 mmol/L (3.5-5.1); PROTEIN - SERUM 7.1 g/dL (6.4-8.2); SODIUM 138 mmol/L (136-145); UREA NITROGEN 6 mg/dL (7-18); eGFR NON AFRICAN AMERICAN > 90 mL/min (90-120)
--- NOTE | 2019-01-20 07:38 | NUR ---
ALERT AND ORIENTED. LUNGS CLEAR BILATERALLY IN ALL ODONNELL. HEART SOUNDS S1 AND S2 HEARD IN ALL ODONNELL. BOWEL SOUNDS ACTIVE X 4. SKIN INTACT WITHOUT REDNESS. IV TO LEFT AC PATENT WITHOUT REDNESS. NG TUBE TO LEFT NARE HOOKED TO SUCTION. NPO FOR PROCEDURE TODAY. DENIES NEEDS. BED LOW. CALL ALCOCER AND PERSONAL ITEMS IN REACH. WILL CONTINUE TO MONITOR.
--- NOTE | 2019-01-20 10:10 | NUR ---
RESTING IN BED. DENIES NEEDS. WILL CONTINUE TO MONITOR.
--- NOTE | 2019-01-20 11:00 | NUR ---
PATIENT TAKEN FOR PROCEDURE.
--- NOTE | 2019-01-20 12:26 | NUR ---
Nutrition follow-up: Pt remains NPO; surgery for lysis of adhesions today Labs reviewed Wt: 190# ProcalAmine PPN started @ 50 ml/hr RDN following.
--- NOTE | 2019-01-20 15:43 | MORECARE ---
CASE MANAGEMENT DISCHARGE SUMMARY PATIENT: JUANCHO PEREZ UNIT: [id number] ADM DATE: 01/17/19 AGE: 54 : 67 SEX: F ROOM/BED: D.2224 AUTHOR: DENIS HENSON PHYSICIAN: REFERRING PHYSICIAN: GURVINDER CARPENTER MD DATE OF SERVICE: 01/20/19 Discharge Plan Patient Name: JUANCHO PEREZ Facility: [facility]:[place] : 1965 Planned Disposition: Home Anticipated Discharge Date: Discharge Date: Expected LOS: Initial Reviewer: [email or web address] Initial Review Date: 01/20/2019 Generated: 01/20/19 4:43 pm Comments DCP- Discharge Planning Updated by [email or web address]: Colleen Sabillon on 01/20/19 2:[address] Patient Name: JUANCHO PEREZ Admission Status: ER Accout number: [id number] Admission Date: 01-17-2019 : 1965 Admission Diagnosis:UNSP INTESTNL OBST, UNSP TO PARTIAL VERSUS COMPLETE Attending: GURVINDER WILBURN Current LOS: 3 Anticipated DC Date: Planned Disposition: Home Primary Insurance: [employer] OPTIONS JONATHON Discharge Planning Comments: Have attempted to meet with patient several times today and she has been in the OR, will try again later. CM will continue to follow and assist with discharge planning/needs. Plant Controller: Colleen Sabillon Patient Name: JUANCHO PEREZ Page [phone] at 1543 All edits/amendments must be made on the electronic document DICTATION DATE: 01/20/19 1543 LOCOMOTIVE LUBRICATING SYSTEMS CLERK: RANDY 01/20/19 1543 RPT#: [id number] DC DATE: STATUS: ADM IN [facility] [address] [place] [address] END OF REPORT
--- NOTE | 2019-01-20 17:00 | NUR ---
PATIENT RETURNED FROM PROCEDURE. VITALS STABLE. WILL CONTINUE TO MONITOR.
--- NOTE | 2019-01-20 20:00 | NUR ---
ASSESSMENT PER FLOWSHEET. MIDLINE INCISION W/DRESSING C/D/I.LAP SITES X4 WITH DRSG C/D/I. IV PATENT LEFT ARM OF NS AT 100CC'S/HR K+ RIDER AT 100CC'S/HR AND PROCAL AT 50CC'S/HR SITE CLEAR. JIG AND FIXTURE BUILDER APPRENTICE OF DILAUDID IN USE WITH SETTINGS AT 0.2MG Q10MIN W/4MG Q4H L/O. RELATIVE IN ROOM STREET TO BEDSIDE DRAINAGE WITH ZIGGY COLORED URINE. 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 NGT TO LIWS W/GREEN DRAINAGE NOTED.
--- NOTE | 2019-01-20 22:00 | NUR ---
MEDS PO HELD PT NPO ORDERED. IV MEDS GIVEN PER JUL. O2 ON 2L/M PER NC. K+ RIDER COMPLETED AND TURNED OFF.
--- NOTE | 2019-01-21 | NUR ---
AWAKE TURNED TO LEFT SIDE WITH PILLOW TO BACK. SR UP X2 CALL LIGHT WITHIN REACH. RELATIVE AT BEDSIDE.
[2019-01-21 01:44] VITALS: BP 131/80
--- NOTE | 2019-01-21 03:00 | NUR ---
RESTING QUIETLY DENIES NEEDS. MEDS GIVEN PER JUL.
[2019-01-21 04:38] VITALS: BP 130/80
[2019-01-21 06:04] LABS: BASOPHILS 0.2 % (0-2); EOSINOPHILS 0.1 % (0-7); HEMOGLOBIN 9.7 g/dL (12-16); IMMATURE GRANULOCYTES 0.2 % (0-5); MCH 24.7 pg (26.0-34.0); MCHC 32.3 g/dL (31.0-37.0); MCV 76.3 fL (80.0-100.0); MEAN PLATELET VOLUME 9.9 fL (7.4-10.4); MONOCYTES 11.1 % (2-11); NEUTROPHILS 69.4 % (40-80); PLATELET COUNT 384 10x3/uL (130-400); RBC 3.93 10x6/uL (4.00-5.40); RDW 16.9 % (11.5-14.5); WBC 8.6 10x3/uL (4.8-10.8)
[2019-01-21 06:29] LABS: ALBUMIN 2.4 g/dL (3.4-5.0); BILIRUBIN - TOTAL 0.23 mg/dL (0.2-1.3); CALCIUM 8.7 mg/dL (8.5-10.1); CARBON DIOXIDE 24.7 mmol/L (21.0-32.0); PROTEIN - SERUM 6.2 g/dL (6.4-8.2)
[2019-01-21 06:39] LABS: ANION GAP 13.7 mmol/L (8-16); POTASSIUM - SERUM 4.4 mmol/L (3.5-5.1)
--- NOTE | 2019-01-21 07:25 | NUR ---
PT RESTING IN BED. NO ACUTE DISTRESS NOTED. REPORTS PAIN 4/10 AT THIS TIME. DILAUDID QUALITY CONTROL ASSOCIATE IN USE. O2 @ 2L NC IN PLACE. NG TUBE TO LEFT NARE INTACT AND TO LOW INTERMITTENT SUCTIONING. IV TO LEFT FOREARM WITH PROCAL @ 50ML/HR, D5 LR W/ 20KCL @ 100ML/HR INFUSING VIA PUMP. SITE WITHOUT REDNESS OR EDEMA. MIDLINE INCISION WITH 4 LAP SITES C/D/I. DENIES FURTHER NEEDS AT THIS TIME. CL WITHIN REACH. ENCOURAGED TO CALL WITH NEEDS. CONTINUE POC
--- NOTE | 2019-01-21 08:16 | OP ---
PATIENT NAME: JUANCHO PEREZ MEDICAL RECORD: [id number] :[birth year] LOCATION:D.[facility] [place] ADMISSION DATE:01/17/19 SURGEON: GUTIERREZ MEHTA MD DATE OF OPERATION: 01/20/2019 SURGEON: Gutierrez Mehta MD PREOPERATIVE DIAGNOSIS: Small-bowel obstruction. POSTOPERATIVE DIAGNOSES: Small-bowel obstruction, perforated small bowel with foreign body. Case was contaminated. ESTIMATED BLOOD LOSS: 500 cc. OPERATIVE COURSE: After consent was obtained, the patient was taken to the operating room and placed in the supine position on the operating table, next general anesthesia was given via endotracheal intubation after a timeout was performed that confirmed the correct patient and procedure. The abdomen was prepped and draped in typical sterile fashion. Local anesthetic was injected in the left upper quadrant at Salvador's point. A stab incision was made with an 11 blade scalpel. Using a 5-mm bladeless optical trocar, the abdomen was entered under direct laparoscopic vision. Adequate pneumoperitoneum was achieved, there was as previously noted on previous operations, the patient had severe dense intra-abdominal adhesions. A second trocar was placed into the subxiphoid position under laparoscopic vision. Laparoscopic lysis of adhesion has been performed with the Harmonic scalpel until 2 additional 5-mm trocars could be placed in the left lateral quadrant. All remaining adhesions to the anterior abdominal wall were taken down with a combination of blunt dissection and Harmonic scalpel dissection. At the small bowel, laparoscopic lysis of adhesions was attempted. The bowel had such dense adhesions that these adhesions that the small bowel was not able to be mobilized adequately. At this time, a midline incision was made with a #15-blade scalpel. Dissection was into the subcutaneous tissue with electrocautery. The fascia was opened using electrocautery. At this time, the trocars removed. The main part of the incision was then opened under direct vision. An Jimmy retractor was placed. At this time, adhesiolysis was performed using combination of sharp scissor dissection and electrocautery until the small bowel was mobilized from the ligament of Treitz to the ileocecal valve. There was a full thickness enterotomy noted in the terminal ileum, which was repaired primarily using interrupted 3-0 Vicryl suture in 2 layers imbricating the inner layer with 3-0 Vicryl suture. Second layer, in the mid portion of the small bowel, there was a dense adhesion. During the adhesiolysis it was noted there was a wooden spiked toothpick that had perforated through 2 pieces of bowel and was apparently walled off and appeared chronic in nature. At this time, the foreign body was sent for permanent pathology. A small bowel resection was performed in the mid jejunum in a bjoo-ec-[id number] fashion. Enterotomies were made with electrocautery. Using a ITALO linear cutting stapler, the common enterotomy was made and the common enterotomy was then closed with a second firing of the stapler. The mesentery was taken with the Harmonic scalpel and sent for permanent pathology. The staple line was imbricated using 3-0 Vicryl suture. At this time, the abdomen was irrigated with 4 liters of warm normal saline. The abdomen was inspected. There was no evidence of bowel injury. No evidence of bleeding. OPERATIVE REPORT [id number] CHRISJUANCHOAlexis VENTURA Again, the small bowel was run from the ligament of Treitz to the terminal ileum looking for serosal defects. No further serosal defects were identified. At this time, the fascia was closed with a #1 looped PDS. Subcutaneous tissue was irrigated. The skin was loosely reapproximated using the skin stapler. At the end of the case, all needle and instrument counts were correct. No complications occurred. The patient was extubated and transferred to the PACU in stable condition. TRANSINT:[id number] Voice Confirmation ID: [id number] DOCUMENT ID: [id number] GUTIERREZ MEHTA MD at 0816 CC: [id number] DICTATION DATE: 01/20/19 1548 DIMENSION WAREHOUSE SUPERVISOR: 01/20/19 191 ADM IN [facility] [address] [place] [address]
[2019-01-21 08:24] VITALS: BP 139/22
--- NOTE | 2019-01-21 11:16 | MORECARE ---
CASE MANAGEMENT DISCHARGE SUMMARY PATIENT: JUANCHO HEADLEY UNIT: [id number] ADM DATE: 01/17/19 AGE: 54 : 67 SEX: F ROOM/BED: D.2224 AUTHOR: NATIVIDAD,DOC PHYSICIAN: REFERRING PHYSICIAN: GURVINDER CARPENTER MD DATE OF SERVICE: 01/21/19 Discharge Plan Patient Name: JUANCHO HEADLEY Facility: [facility]:[place] : 1965 Planned Disposition: Home Anticipated Discharge Date: Discharge Date: Expected LOS: Initial Reviewer: [email or web address] Initial Review Date: 01/20/2019 Generated: 01/21/19 12:16 pm Comments DCP- Discharge Planning Updated by [email or web address]: Colleen Sabillon on 01/21/19 10:[address] Patient Name: JUANCHO HEADLEY Admission Status: ER Accout number: [id number] Admission Date: 01-17-2019 : 1965 Admission Diagnosis:UNSP INTESTNL OBST, UNSP TO PARTIAL VERSUS COMPLETE Attending: GURVINDER WILBURN Current LOS: 4 Anticipated DC Date: Planned Disposition: Home Primary Insurance: [employer] PR[employer] OPTIONS JONATHON Discharge Planning Comments: CM met with patient to complete initial dc planning assessment. CM educated patient on the CM role and verbal consent given by patient to complete assessment. Patient lives at home with her . At discharge patient plans to return and feels this is a safe discharge. CM discussed availability of home health, rehab services, and medical equipment. Patient denied known discharge needs at this time. CM will continue to follow and will assist as needed with dc plans/needs. Professor Of Genetics: Colleen Sabillon DCP- Discharge Planning Updated by [email or web address]: Colleen Sabillon on 01/20/19 2:[address] Patient Name: JUANCHO HEADLEY Admission Status: ER Accout number: [id number] Admission Date: 01-17-2019 : 1965 Admission Diagnosis:UNSP INTESTNL OBST, UNSP TO PARTIAL VERSUS COMPLETE Attending: GURVINDER WILBURN Current LOS: 3 Anticipated DC Date: Planned Disposition: Home Primary Insurance: [employer] PRVT OPTIONS JONATHON Discharge Planning Comments: Have attempted to meet with patient several times today and she has been in the OR, will try again later. CM will continue to follow and assist with discharge planning/needs. Professor Of Genetics: Colleen Ridge DCPIA - Discharge Planning Initial Assessment Updated by [email or web address]: Colleen Ridge on 01/21/19 11:13 am * Is the patient Alert and Oriented? Yes * How many steps to enter\exit or inside your home? 0/0 * PCP Laurita Gonzalez with [facility] * Pharmacy [facility] on [place] * Preadmission Environment Home with Family * ADLs Independent * Equipment None * List name and contact numbers for known caregivers / representatives who currently or will assist patient after discharge: Justus Headley - [facility] - [phone] * Verbal permission to speak to the caregivers and representatives has been obtained from the patient. Yes * Community resources currently utilized None * Additional services required to return to the preadmission environment? No * Can the patient safely return to the preadmission environment? Yes * Has this patient been hospitalized within the prior 30 days at any hospital? No Last DP export: 01/20/19 2:43 pm Patient Name: JUANCHO HEADLEY Page [phone] at 1116 All edits/amendments must be made on the electronic document DICTATION DATE: 01/21/191115 SOCIAL WORKER PALLIATIVE CARE: RANDY 01/21/191115 RPT#: [id number] MD DATE: STATUS: ADM IN [facility] [address] [place] [address] END OF REPORT
[2019-01-21 12:19] VITALS: BP 131/73
[2019-01-21 17:03] VITALS: BP 103/59
--- NOTE | 2019-01-21 20:00 | NUR ---
ASSESSMENT PER FLOWSHEET. IV Q8PWGQL RT ARM OF PROCAL AT 50CC'S/HR D5LR W/20MEQ KCL INFUSING AT 100CC'S/HR. CARGO CHECKER OF DILAUDID IN USE WITH SETTINGS AT 0.2MG Q10MIN W/4MG Q4HR L/O. STREET TO BEDSIDE DRAINAGE WITH YELLOW URINE NOTED. MIDLINE INCISON NOTED DRSG C/D/I. LAP SITES X3 C/D/I. NGT TO LIWS NOTED WITH BROWN DRAINAGE NOTED CANISTER EMPTIED. LEFT FROM DAY SHIFT.
[2019-01-21 21:20] VITALS: BP 139/79
--- NOTE | 2019-01-21 21:30 | NUR ---
MEDS GIVEN PER JUL. UDYA=413 HUMALOG INSULIN 2 UNITS GIVEN SUBC LEFT ARM PER S/S.
--- NOTE | 2019-01-22 00:52 | NUR ---
RESTING QUIETLY RESPIRATIONS WITH EASE AND UNLABORED.
[2019-01-22 01:11] VITALS: BP 126/69
[2019-01-22 05:18] VITALS: BP 101/60
[2019-01-22 07:05] LABS: ALBUMIN 2.1 g/dL (3.4-5.0); ALKALINE PHOSPHATASE 39 U/L (46-116); BILIRUBIN - TOTAL 0.23 mg/dL (0.2-1.3); CALCIUM 8.5 mg/dL (8.5-10.1); CHLORIDE - SERUM 105 mmol/L (98-107); GLUCOSE 197 mg/dL (74-106); POTASSIUM - SERUM 4.3 mmol/L (3.5-5.1); PROTEIN - SERUM 5.3 g/dL (6.4-8.2); SODIUM 139 mmol/L (136-145)
[2019-01-22 07:15] LABS: ALT (SGPT) 13 U/L (10-68); CALC OSMOLALITY 281 mosm/kg (275-300); CREATININE - SERUM 0.7 mg/dL (0.6-1.3); UREA NITROGEN 9 mg/dL (7-18); eGFR NON AFRICAN AMERICAN > 90 mL/min (90-120)
[2019-01-22 07:16] LABS: BASOPHILS 0.2 % (0-2); EOSINOPHILS 6.1 % (0-7); HEMATOCRIT 24.2 % (36.0-48.0); HEMOGLOBIN 7.8 g/dL (12-16); IMMATURE GRANULOCYTES 0.4 % (0-5); LYMPHOCYTES 10.1 % (15-50); MCH 24.5 pg (26.0-34.0); MCHC 32.2 g/dL (31.0-37.0); MCV 76.1 fL (80.0-100.0); MEAN PLATELET VOLUME 9.9 fL (7.4-10.4); MONOCYTES 8.4 % (2-11); NEUTROPHILS 74.8 % (40-80); PLATELET COUNT 348 10x3/uL (130-400); RBC 3.18 10x6/uL (4.00-5.40); RDW 17.2 % (11.5-14.5)
[2019-01-22 07:29] LABS: WBC 12.3 10x3/uL (4.8-10.8)
[2019-01-22 08:20] LABS: % SATURATION 3 % (15-55); IRON 7 ug/dl (35-150); TOTAL IRON BIND CAPACITY 193 ug/dl (260-445); UNSAT IRON BIND CAPACITY 186 ug/dl (150-375)
[2019-01-22 09:22] VITALS: BP 151/74
[2019-01-22 16:09] VITALS: BP 131/73
--- NOTE | 2019-01-22 19:08 | NUR ---
PT RESTING IN BED. NO SIGNS OF DISTRESS. IV TO RIGHT WRIST PATENT NO REDNESS OR TENDERNESS. INCISION TO ABDOMEN. CLEAN AND INTACT. COMPLAINS OF PAIN. MEDS GIVEN. DENIES ANY FURTHER NEED AT THSI TIME. CALL LIGHT INREACH.
--- NOTE | 2019-01-22 19:24 | NUR ---
I have reviewed this patient and I concur with the Shift Assessment completed by the Licensed Practical Nurse today this shift.
--- NOTE | 2019-01-22 20:00 | NUR ---
A&O X 4, SUPINE IN BED. DENIES N/V/PAIN AT THIS TIME. FSBS 137. INFORMED OF ORDER TO REMOVED STREET, PT REQUESTED TO WAIT. NO NEEDS AT THIS TIME, NGT TO LIS. WILL CONTINUE TO MONITOR.
[2019-01-22 20:55] VITALS: BP 150/80
[2019-01-22 22:34] LABS: APPEARANCE CLEAR (CLEAR); BILIRUBIN NEGATIVE (NEGATIVE); COLOR ORANGE (YELLOW); GLUCOSE 50 mg/dL (NEGATIVE); KETONE SMALL mg/dL (NEGATIVE); NITRITE NEGATIVE (NEGATIVE); PROTEIN NEGATIVE (NEGATIVE); UROBILINOGEN NORMAL (NORMAL)
[2019-01-22 22:35] LABS: BACTERIA FEW /hpf (NONE SEEN); EPITHELIAL CELLS 0-5 /hpf (0-5); MUCUS >1+ /lpf (NONE SEEN); WHITE CELLS - URINE 0-5 /hpf (0-5)
[2019-01-23 00:18] VITALS: BP 157/86
[2019-01-23 05:18] VITALS: BP 148/89
[2019-01-23 06:07] LABS: BASOPHILS 0.2 % (0-2); HEMOGLOBIN 8.9 g/dL (12-16); IMMATURE GRANULOCYTES 0.3 % (0-5); LYMPHOCYTES 15.4 % (15-50); MCV 75.8 fL (80.0-100.0); MEAN PLATELET VOLUME 9.5 fL (7.4-10.4); MONOCYTES 8.1 % (2-11); PLATELET COUNT 346 10x3/uL (130-400); RBC 3.56 10x6/uL (4.00-5.40); RDW 17.7 % (11.5-14.5); WBC 12.3 10x3/uL (4.8-10.8)
[2019-01-23 06:33] LABS: ALBUMIN 2.1 g/dL (3.4-5.0); ALKALINE PHOSPHATASE 40 U/L (46-116); ALT (SGPT) 14 U/L (10-68); BILIRUBIN - TOTAL 0.38 mg/dL (0.2-1.3); CALC OSMOLALITY 278 mosm/kg (275-300); CALCIUM 8.5 mg/dL (8.5-10.1); CARBON DIOXIDE 29.7 mmol/L (21.0-32.0); CHLORIDE - SERUM 103 mmol/L (98-107); CREATININE - SERUM 0.7 mg/dL (0.6-1.3); GLUCOSE 163 mg/dL (74-106); POTASSIUM - SERUM 4.2 mmol/L (3.5-5.1); PROTEIN - SERUM 5.4 g/dL (6.4-8.2); SODIUM 138 mmol/L (136-145); UREA NITROGEN 9 mg/dL (7-18); eGFR NON AFRICAN AMERICAN > 90 mL/min (90-120)
--- NOTE | 2019-01-23 07:17 | NUR ---
I have reviewed this patient and I concur with the Shift Assessment completed by the Licensed Practical Nurse today this shift.
--- NOTE | 2019-01-23 07:40 | NUR ---
PT SITTING UP IN CHAIR AT BEDSIDE. NG TUBE IN PLACE AND TO LOW INTERMITTENT SUCTIONING. O2 @ 3L NC IN PLACE. REPORTS PAIN 4/10 AT THIS TIME. PT REPORTS ACE WELL SITTING UP IN CHAIR. MIDLINE INCISION INTACT NO REDNESS OR DRAINAGE. LAP SITES X 3. PT DENIES FURTHER NEEDS AT THIS TIME. CL WITHIN REACH. ENCOURAGED TO CALL WITH NEEDS. CONTINUE POC
[2019-01-23 07:53] VITALS: BP 131/79
--- NOTE | 2019-01-23 08:30 | NUR ---
NG TUBE D/C'D PER MD ORDERS. PT ACE WELL. TUBE ALL INTACT.
[2019-01-23 12:30] VITALS: BP 148/74
[2019-01-23 17:49] VITALS: BP 147/65
[2019-01-23 20:00] VITALS: BP 156/84
[2019-01-24] VITALS: BP 150/81
--- NOTE | 2019-01-24 | NUR ---
ENTERED ROOM IN RESPONSE TO PAPER TESTING SUPERVISOR REPORT OF ELEVATED TEMP. A&0 X 4. PT REPORTS FEELING URGE TO HAVE A BM, BUT REPORTS SHE ISN'T EVEN PASSING GAS. HEAVY BLANKETS REMOVED, ICE WATER GIVEN. PT REPORTS STINGING FEEL WHILE IV IN RIGHT WRIST IS INFUSING. RIGHT WRIST APPEARS EDEMATOUS. IV REMOVED WITH CATHETER INTACT. 22G IV RESITED TO LEFT FOREARM, 1ST ATTEMPT. FLUSHES WITH EASE. PT TOLERATED WELL. SCHEDULED MED GIVEN. WILL MONITOR CLOSELY.
--- NOTE | 2019-01-24 03:28 | NUR ---
I have reviewed this patient and I concur with the Shift Assessment completed by the Licensed Practical Nurse today this shift.
[2019-01-24 04:00] VITALS: BP 157/87
[2019-01-24 07:24] LABS: BASOPHILS 0.2 % (0-2); EOSINOPHILS 9.1 % (0-7); HEMATOCRIT 25.6 % (36.0-48.0); HEMOGLOBIN 8.4 g/dL (12-16); IMMATURE GRANULOCYTES 0.4 % (0-5); LYMPHOCYTES 19.7 % (15-50); MCHC 32.8 g/dL (31.0-37.0); MCV 76.2 fL (80.0-100.0); MEAN PLATELET VOLUME 9.6 fL (7.4-10.4); MONOCYTES 9.7 % (2-11); NEUTROPHILS 60.9 % (40-80); PLATELET COUNT 411 10x3/uL (130-400); RBC 3.36 10x6/uL (4.00-5.40); RDW 17.9 % (11.5-14.5); WBC 10.9 10x3/uL (4.8-10.8)
[2019-01-24 07:39] LABS: ALBUMIN 1.9 g/dL (3.4-5.0); ALKALINE PHOSPHATASE 43 U/L (46-116); ALT (SGPT) 11 U/L (10-68); CALC OSMOLALITY 278 mosm/kg (275-300); CALCIUM 8.6 mg/dL (8.5-10.1); CARBON DIOXIDE 33.2 mmol/L (21.0-32.0); CHLORIDE - SERUM 101 mmol/L (98-107); CREATININE - SERUM 0.6 mg/dL (0.6-1.3); GLUCOSE 161 mg/dL (74-106); POTASSIUM - SERUM 3.6 mmol/L (3.5-5.1); PROTEIN - SERUM 5.9 g/dL (6.4-8.2); SODIUM 139 mmol/L (136-145); UREA NITROGEN 7 mg/dL (7-18); eGFR NON AFRICAN AMERICAN > 90 mL/min (90-120)
--- NOTE | 2019-01-24 07:48 | NUR ---
PT SITTING UP IN BED. NO ACUTE DISTRESS NOTED AT THIS TIME. REPORTS PAIN 9/10 AT THIS TIME. DILAUDID FIBER OPTIC CENTRAL OFFICE INSTALLER INTACT AND VOICES RELIEF WITH FIBER OPTIC CENTRAL OFFICE INSTALLER. IV TO LEFT FOREARM WITH D5 LR WITH 20KCL @ 75ML/HR INFUSING VIA PUMP. SITE WITHOUT REDNESS OR EDEMA. PT VOICES GAS, BUT NO BM. ABD INCISIONS C/D/I. DENIES FURTHER NEEDS AT THIS TIME. CL WITHIN REACH. CONTINUE POC
[2019-01-24 08:09] VITALS: BP 115/64
--- NOTE | 2019-01-24 19:15 | NUR ---
RECEIVED CARE FROM DAY NURSE. SITTING UP IN BED WITH COMPANY AT SIDE. IV INFUSING PER ORDER TO LEFT FA. CALL LIGHT AT SIDE. NO NEEDS VOICED AT THIS TIME.
[2019-01-24 20:00] VITALS: BP 144/95
--- NOTE | 2019-01-24 22:10 | NUR ---
UP AMBULATING IN HALLS AT THIS TIME.
[2019-01-25] VITALS: BP 139/83
--- NOTE | 2019-01-25 01:09 | NUR ---
I have reviewed this patient and I concur with the Shift Assessment completed by the Licensed Practical Nurse today this shift.
[2019-01-25 04:00] VITALS: BP 128/88
[2019-01-25 06:29] LABS: BASOPHILS 0.3 % (0-2); EOSINOPHILS 9.1 % (0-7); HEMATOCRIT 26.1 % (36.0-48.0); HEMOGLOBIN 8.6 g/dL (12-16); IMMATURE GRANULOCYTES 0.5 % (0-5); LYMPHOCYTES 20.2 % (15-50); MCH 25.3 pg (26.0-34.0); MCV 76.8 fL (80.0-100.0); MONOCYTES 9.6 % (2-11); NEUTROPHILS 60.3 % (40-80); PLATELET COUNT 441 10x3/uL (130-400); RDW 17.9 % (11.5-14.5)
[2019-01-25 06:55] LABS: ALBUMIN 2.1 g/dL (3.4-5.0); ALKALINE PHOSPHATASE 46 U/L (46-116); ALT (SGPT) 11 U/L (10-68); BILIRUBIN - TOTAL 0.43 mg/dL (0.2-1.3); CALC OSMOLALITY 274 mosm/kg (275-300); CALCIUM 8.5 mg/dL (8.5-10.1); CARBON DIOXIDE 29.7 mmol/L (21.0-32.0); CHLORIDE - SERUM 102 mmol/L (98-107); CREATININE - SERUM 0.7 mg/dL (0.6-1.3); GLUCOSE 166 mg/dL (74-106); POTASSIUM - SERUM 3.7 mmol/L (3.5-5.1); PROTEIN - SERUM 6.3 g/dL (6.4-8.2); SODIUM 136 mmol/L (136-145); eGFR NON AFRICAN AMERICAN > 90 mL/min (90-120)
[2019-01-25 06:56] LABS: UREA NITROGEN 9 mg/dL (7-18)
[2019-01-25 08:46] VITALS: BP 138/82
--- NOTE | 2019-01-25 10:00 | NUR ---
PT ALERT X 4. BREATH SOUNDS CLEAR BILAT. ABDOMEN DISTENDED AND FIRM, MIDLINE INCISION WITH VAHE, TENDER TO PALPATION. IV TO LEFT FOREARM, PATENT, DRESSING CDI. PT REPORTING PAIN OF 9/10, NOT TIME FOR MEDICATION, WILL MONITOR. BOWEL SOUNDS HYPOACTIVE TO ALL ODONNELL. BED LOW, CALL LIGHT IN REACH. NO OTHER NEEDS AT THIS TIME.
[2019-01-25 12:39] VITALS: BP 157/89
[2019-01-25 12:54] LABS: MAGNESIUM - SERUM 2.1 mg/dL (1.8-2.4)
[2019-01-25 16:52] VITALS: BP 143/93
--- NOTE | 2019-01-25 19:25 | NUR ---
PT SITTING UP IN BEDSIDE CHAIR WITHOUT DISTRESS, AOX4. IV LEFT FA INFSUING PROCAL @ 75, D5LR 20K @ 20 AND ZOFRAN DRIP @ 4.7. BOWEL SOUNDS HYPOACTIVE, INCISIONS CDI. STATES PAIN 7/10 IN ABD. DENIES NAUSEA AT THIS TIME. NO NEEDS, CL IN REACH, WILL CTM
[2019-01-25 19:53] VITALS: BP 142/83
--- NOTE | 2019-01-25 21:15 | NUR ---
PT AMBULATING AROUND NURSES STATION. DENIES NEEDS, WILL CTM
--- NOTE | 2019-01-25 22:00 | NUR ---
IV LEFT FA SWOLLEN AND PAINFUL TO TOUCH. DC'D WITH CATHETER TIP INTACT. RESITED X1 ATTEMPT 22G RIGHT FA. PROVIDED HEAT PACK TO PLACE ON LEFT ARM
--- NOTE | 2019-01-25 22:45 | NUR ---
PT STATES PAIN IN ABD 01/21, GAVE DILAUDID ORDERED. DENIES OTHER NEEDS AT THIS TIME. FAMILY AT BEDSIDE. CL IN REACH, WILL CTM
[2019-01-26 00:46] VITALS: BP 159/91
--- NOTE | 2019-01-26 04:45 | NUR ---
PAIN IN ABD 10/10, GAVE DILAUDID ORDERED. PT COLD AND SHIVERING, GAVE EXTRA BLANKET FROM WARMER. DENIES OTHER NEEDS, CL IN REACH, WILL CTM
[2019-01-26 05:03] VITALS: BP 161/79
[2019-01-26 06:41] LABS: HEMATOCRIT 28.7 % (36.0-48.0); HEMOGLOBIN 9.2 g/dL (12-16); LYMPHOCYTES 20.5 % (15-50); MCH 25.4 pg (26.0-34.0); MCHC 32.1 g/dL (31.0-37.0); MEAN PLATELET VOLUME 8.8 fL (7.4-10.4); NEUTROPHILS 69.8 % (40-80); PLATELET COUNT 469 10x3/uL (130-400); RBC 3.62 10x6/uL (4.00-5.40); WBC 11.2 10x3/uL (4.8-10.8)
[2019-01-26 06:43] LABS: MCV 79.3 fL (80.0-100.0)
[2019-01-26 07:16] LABS: ALBUMIN 2.2 g/dL (3.4-5.0); ALKALINE PHOSPHATASE 53 U/L (46-116); ALT (SGPT) 12 U/L (10-68); BILIRUBIN - TOTAL 0.45 mg/dL (0.2-1.3); CALC OSMOLALITY 269 mosm/kg (275-300); CALCIUM 8.9 mg/dL (8.5-10.1); CARBON DIOXIDE 28.9 mmol/L (21.0-32.0); CHLORIDE - SERUM 100 mmol/L (98-107); CREATININE - SERUM 0.7 mg/dL (0.6-1.3); GLUCOSE 148 mg/dL (74-106); PHOSPHOROUS 4.2 mg/dL (2.5-4.9); POTASSIUM - SERUM 4.2 mmol/L (3.5-5.1); PROTEIN - SERUM 6.7 g/dL (6.4-8.2); SODIUM 134 mmol/L (136-145); UREA NITROGEN 9 mg/dL (7-18); eGFR NON AFRICAN AMERICAN > 90 mL/min (90-120)
[2019-01-26 08:15] VITALS: BP 184/86
--- NOTE | 2019-01-26 10:52 | NUR ---
PT RESTING IN BED. NO SIGNS OF DISTRESS. IV TO RIGHT FORARM PATENT NO REDNESS OR TENDERNESS. MIDLINE INCISION ON ABDOMEN AND 4 LAP SITES. COMPLAINS OF PAIN. MEDICATIONS GIVEN. DENIES ANY FURHTER NEED AT THIS TIME. CALL LIGHT IN REACH. BED LOW POSITION. FAMILY AT BEDSIDE.
[2019-01-26 12:18] VITALS: BP 166/72
[2019-01-26 17:05] VITALS: BP 129/83
--- NOTE | 2019-01-26 18:37 | NUR ---
I have reviewed this patient and I concur with the Shift Assessment completed by the Licensed Practical Nurse today this shift.
--- NOTE | 2019-01-26 19:30 | NUR ---
PT SITTING UP ON SIDE OF BED WITHOUT DISTRESS, AOX4. STATES PAIN IN ABD 6/10, DRESSING CDI. IV RIGHT FA WITHOUT SWELLING OR REDNESS. DENIES NEEDS. CL IN REACH, WILL CTM
[2019-01-26 20:00] VITALS: BP 147/80
--- NOTE | 2019-01-26 22:58 | NUR ---
PT AMBULATING AROUND NURSES STATION
--- NOTE | 2019-01-26 23:30 | NUR ---
PT HAD 300ML OF YELLOW FOUL SMELLING LIQUID. GAVE PHENERGAN ORDERED. WILL CTM
[2019-01-27] VITALS: BP 133/81
[2019-01-27 04:00] VITALS: BP 148/86
[2019-01-27 06:43] LABS: BASOPHILS 0.2 % (0-2); EOSINOPHILS 5.8 % (0-7); HEMATOCRIT 26.4 % (36.0-48.0); HEMOGLOBIN 8.7 g/dL (12-16); IMMATURE GRANULOCYTES 1.6 % (0-5); MCH 24.9 pg (26.0-34.0); MEAN PLATELET VOLUME 9.4 fL (7.4-10.4); MONOCYTES 9.8 % (2-11); NEUTROPHILS 66.6 % (40-80); PLATELET COUNT 512 10x3/uL (130-400); RBC 3.49 10x6/uL (4.00-5.40); RDW 17.8 % (11.5-14.5)
[2019-01-27 06:52] LABS: ALBUMIN 2.3 g/dL (3.4-5.0); ALKALINE PHOSPHATASE 58 U/L (46-116); ALT (SGPT) 12 U/L (10-68); BILIRUBIN - TOTAL 0.49 mg/dL (0.2-1.3); CALC OSMOLALITY 277 mosm/kg (275-300); CALCIUM 8.8 mg/dL (8.5-10.1); CARBON DIOXIDE 28.1 mmol/L (21.0-32.0); CHLORIDE - SERUM 101 mmol/L (98-107); CREATININE - SERUM 0.7 mg/dL (0.6-1.3); GLUCOSE 152 mg/dL (74-106); MAGNESIUM - SERUM 2.1 mg/dL (1.8-2.4); PHOSPHOROUS 4.4 mg/dL (2.5-4.9); POTASSIUM - SERUM 4.3 mmol/L (3.5-5.1); PROTEIN - SERUM 6.7 g/dL (6.4-8.2); SODIUM 138 mmol/L (136-145); UREA NITROGEN 9 mg/dL (7-18); eGFR NON AFRICAN AMERICAN > 90 mL/min (90-120)
[2019-01-27 06:56] LABS: MCV 75.6 fL (80.0-100.0)
--- NOTE | 2019-01-27 07:51 | NUR ---
ALERT AND ORIENTED. LUNGS CLEAR BILATERALLY IN ALL ODONNELL. BOWEL SOUNDS HYPOACTIVE X 4. HEART SOUNDS S1 AND S2 HEARD IN ALL ODONNELL. MIDLINE INCISION TO ABD INTACT. LAP SITES X 4 INTACT. IV TO RFA PATENT WITHOUT REDNESS. DENIES NEEDS AT THIS TIME. BED LOW. CALL ALCOCER AND PERSONAL ITEMS IN REACH. WILL CONTINUE TO MONITOR.
[2019-01-27 07:59] VITALS: BP 134/80
--- NOTE | 2019-01-27 08:56 | NUR ---
20 gauge 1 inch IV started in left lower forearm x 1 stick. flushed without difficulty. secured with tegaderm saline locked with swab cap in place.
--- NOTE | 2019-01-27 10:06 | NUR ---
SPOKE WITH DR VASQUEZ WHO STATED PATIENT HAS SMALL PULMONARY EMBOLI IN BLL. STATED DR MEHTA DID NOT ANSWER PHONE D/T IN SURGERY.
--- NOTE | 2019-01-27 10:10 | NUR ---
SPOKE WITH DAHLIA PAT TO NOTIFY OF SMALL PULMONARY EMBOLI IN L.
--- NOTE | 2019-01-27 11:31 | NUR ---
SPOKE WITH DAHLIA IRAHETA WHO STATED CAN RESTART PATIENT'S IV DIAUDID THAT FELL OFF MAR.
[2019-01-27 12:45] VITALS: BP 134/81
--- NOTE | 2019-01-27 13:38 | NUR ---
Nutrition follow-up: Diet: Clear liquids ProcalAmine PPN infusing @ 75 ml/hr Labs reviewed WT: 204# +BM ,loose Pt not meeting estimated energy needs at this time. May need to consider changing to TPN if diet unable to advance within 24-[address] RDN following.
[2019-01-27 15:37] VITALS: BP 143/89
--- NOTE | 2019-01-27 18:47 | NUR ---
RESTING IN BED. DENIES NEEDS AT THIS TIME. BED LOW. CALL ALCOCER AND PERSONAL ITEMS IN REACH.
[2019-01-27 19:54] VITALS: BP 141/79
--- NOTE | 2019-01-27 21:30 | NUR ---
A&O X 4. SITTING UP IN CHAIR IN ROOM, AT BEDSIDE. REMINDED PT AND TO HAVE WEEKLY INSULIN BROUGHT UP TO HOSPITAL FOR TOMORROW. PT DENIES SOB OR DYSPNEA, REPORTS SHE HAS HAD SOME GAS PAIN. REPORTS LAST BM WAS AROUND 1730. DENIES N/V OR NEEDS AT THIS TIME. WILL CONTINUE TO MONITOR.
--- NOTE | 2019-01-28 01:04 | NUR ---
I have reviewed this patient and I concur with the Shift Assessment completed by the Licensed Practical Nurse today this shift.
[2019-01-28 01:12] VITALS: BP 143/81
[2019-01-28 05:01] VITALS: BP 116/79
[2019-01-28 06:53] LABS: MAGNESIUM - SERUM 2.3 mg/dL (1.8-2.4)
--- NOTE | 2019-01-28 07:27 | NUR ---
ALERT AND ORIENTED. LUNGS CLEAR BILATERALLY IN ALL ODONNELL. HEART SOUNDS S1 AND S2 HEARD IN ALL ODONNELL. BOWEL SOUNDS ACTIVE X 4. STATES 2 BMS LAST NIGHT. HAVING DIARRHEA. SKIN INTACT WITHOUT REDNESS. IV TO LFA PATENT WITHOUT REDNESS. IV TO RFA SL PATENT WITHOUT REDNESS. DENIES NEEDS. BED LOW. CALL ALCOCER AND PERSONAL ITEMS IN REACH. WILL CONTINUE TO MONITOR.
[2019-01-28 08:31] VITALS: BP 122/77
[2019-01-28 10:15] LABS: HEMATOCRIT 27.4 % (36.0-48.0); HEMOGLOBIN 8.9 g/dL (12-16); MCH 24.7 pg (26.0-34.0); MCHC 32.5 g/dL (31.0-37.0); MCV 76.1 fL (80.0-100.0); MEAN PLATELET VOLUME 9.4 fL (7.4-10.4); PLATELET COUNT 582 10x3/uL (130-400); RDW 17.7 % (11.5-14.5); WBC 14.5 10x3/uL (4.8-10.8)
[2019-01-28 10:36] LABS: ALBUMIN 2.4 g/dL (3.4-5.0); ALKALINE PHOSPHATASE 68 U/L (46-116); BILIRUBIN - TOTAL 0.71 mg/dL (0.2-1.3); CALCIUM 9.6 mg/dL (8.5-10.1); CARBON DIOXIDE 26.5 mmol/L (21.0-32.0); CHLORIDE - SERUM 98 mmol/L (98-107); CREATININE - SERUM 0.8 mg/dL (0.6-1.3); GLUCOSE 163 mg/dL (74-106); POTASSIUM - SERUM 4.3 mmol/L (3.5-5.1); PROTEIN - SERUM 6.9 g/dL (6.4-8.2); SODIUM 135 mmol/L (136-145); eGFR NON AFRICAN AMERICAN 79 mL/min (90-120)
[2019-01-28 10:47] LABS: ALT (SGPT) 18 U/L (10-68); CALC OSMOLALITY 274 mosm/kg (275-300); UREA NITROGEN 16 mg/dL (7-18)
--- NOTE | 2019-01-28 11:52 | NUR ---
MIDLINE ABD INCISION CLEANED PER ORDER.
--- NOTE | 2019-01-28 12:03 | NUR ---
SITTING ON BEDSIDE. DENIES NEEDS. WILL CONTINUE TO MONITOR.
[2019-01-28 12:19] LABS: EOSINOPHILS 18 % (0-7); LYMPHOCYTES 9 % (15-50); MONOCYTES 13 % (2-11); NEUTROPHILS 50 % (40-80); PLATELET ESTIMATE INCREASED
[2019-01-28 12:20] LABS: ANISOCYTOSIS OCC; ROULEAUX OCC
[2019-01-28 12:27] VITALS: BP 142/81
[2019-01-28 16:37] VITALS: BP 133/78
--- NOTE | 2019-01-28 18:41 | NUR ---
RESTING IN BED. DENIES NEEDS. CALL ALCOCER AND PERSONAL ITEMS IN REACH.
--- NOTE | 2019-01-28 19:30 | NUR ---
A&O X 4, SUPINE IN BED. DENIES PAIN/NAUSEA. REPORTS FREQUENT LOOSE STOOLS THROUGHOUT THE DAY. DENIES NEEDS AT THIS TIME. WILL CONTINUE TO MONITOR.
[2019-01-28 20:18] VITALS: BP 132/77
[2019-01-29 00:44] VITALS: BP 126/75
--- NOTE | 2019-01-29 02:36 | NUR ---
I have reviewed this patient and I concur with the Shift Assessment completed by the Licensed Practical Nurse today this shift.
[2019-01-29 04:43] VITALS: BP 107/60
[2019-01-29 05:46] LABS: BASOPHILS 0.3 % (0-2); EOSINOPHILS 6.7 % (0-7); HEMATOCRIT 24.2 % (36.0-48.0); HEMOGLOBIN 7.8 g/dL (12-16); IMMATURE GRANULOCYTES 2.9 % (0-5); LYMPHOCYTES 19.3 % (15-50); MCH 24.2 pg (26.0-34.0); MCHC 32.2 g/dL (31.0-37.0); MCV 75.2 fL (80.0-100.0); MEAN PLATELET VOLUME 9.2 fL (7.4-10.4); MONOCYTES 11.3 % (2-11); NEUTROPHILS 59.5 % (40-80); PLATELET COUNT 559 10x3/uL (130-400); RBC 3.22 10x6/uL (4.00-5.40); RDW 17.4 % (11.5-14.5); WBC 11.5 10x3/uL (4.8-10.8)
[2019-01-29 06:11] LABS: ALBUMIN 2.3 g/dL (3.4-5.0); ALKALINE PHOSPHATASE 62 U/L (46-116); ALT (SGPT) 17 U/L (10-68); BILIRUBIN - TOTAL 0.67 mg/dL (0.2-1.3); CALC OSMOLALITY 275 mosm/kg (275-300); CALCIUM 9.2 mg/dL (8.5-10.1); CHLORIDE - SERUM 101 mmol/L (98-107); CREATININE - SERUM 0.7 mg/dL (0.6-1.3); GLUCOSE 142 mg/dL (74-106); MAGNESIUM - SERUM 2.1 mg/dL (1.8-2.4); PHOSPHOROUS 5.8 mg/dL (2.5-4.9); PROTEIN - SERUM 6.3 g/dL (6.4-8.2); SODIUM 136 mmol/L (136-145); UREA NITROGEN 17 mg/dL (7-18); eGFR NON AFRICAN AMERICAN > 90 mL/min (90-120)
--- NOTE | 2019-01-29 07:40 | NUR ---
PT RESTING IN BED.NO SIGNS OF DISTRESS. IV TO RIGHT AND LEFT FORARM PATENT NO REDNESS OR TENDERNESS. HAS MIDLINE INCISION AND LAP SITES. CLEAN AND INTACT. DENIES ANY FURTHER NEED AT THIS TIME. CALL LIGHT IN REACH. BED LOW POSITION. NO FAMILY AT BEDSIDE AT THIS TIME.
[2019-01-29 08:46] VITALS: BP 130/67
[2019-01-29] MEDS ORDERED: ELIQUIS5 MG PO ×2 (10:26→12:08)
[2019-01-29] MEDS ORDERED: LEVOFLOXACIN500 MG PO (10:27)
[2019-01-29] MEDS ORDERED: HYDROCODON-ACE1 EAC7 PO (10:27)
--- NOTE | 2019-01-29 12:21 | NUR ---
DISCHARGE INSTRUCTION GIVEN. SEEMS UNDERSTAND INSTRUCTIONS. DENIES ANY BEFORE LEAVING. IV OUT TIP INTACT. LEFT WITH HOSPITAL STAFF TO GO HOME IN PERSONAL RIDE WITH FAMILY MEMEBER.
--- NOTE | 2019-01-29 17:30 | MORECARE ---
CASE MANAGEMENT DISCHARGE SUMMARY PATIENT: JUANCHO HEADLEY UNIT: [id number] ADM DATE: 01/17/19 AGE: 54 : 67 SEX: F ROOM/BED: D.2224 AUTHOR: NATIVIDAD,DOC PHYSICIAN: REFERRING PHYSICIAN: GURVINDER CARPENTER MD DATE OF SERVICE: 01/29/19 Discharge Plan Patient Name: JUANCHO HEADLEY Facility: [facility]:[place] : 1965 Planned Disposition: Home Anticipated Discharge Date: Discharge Date: 01/29/2019 Expected LOS: Initial Reviewer: [email or web address] Initial Review Date: 01/20/2019 Generated: 01/29/19 6:30 pm DCP- Discharge Planning Updated by [id number]: Colleen Sabillon on 01/21/19 10:[address] Patient Name: JUANCHO HEADLEY Admission Status: ER Accout number: [id number] Admission Date: 01-17-2019 : 1965 Admission Diagnosis:UNSP INTESTNL OBST, UNSP TO PARTIAL VERSUS COMPLETE Attending: GURVINDER WILBURN Current LOS: 4 Anticipated DC Date: Planned Disposition: Home Primary Insurance: [employer] PRVT OPTIONS JONATHON Discharge Planning Comments: CM met with patient to complete initial dc planning assessment. CM educated patient on the CM role and verbal consent given by patient to complete assessment. Patient lives at home with her . At discharge patient plans to return and feels this is a safe discharge. CM discussed availability of home health, rehab services, and medical equipment. Patient denied known discharge needs at this time. CM will continue to follow and will assist as needed with dc plans/needs. Training Mgr: Colleen Sabillon DCP- Discharge Planning Updated by [id number]: Colleen Sabillon on 01/20/19 2:[address] Patient Name: JUANCHO HEDALEY Admission Status: ER Accout number: [id number] Admission Date: 01-17-2019 : 1965 Admission Diagnosis:UNSP INTESTNL OBST, UNSP TO PARTIAL VERSUS COMPLETE Attending: GURVINDER WILBURN Current LOS: 3 Anticipated DC Date: Planned Disposition: Home Primary Insurance: [employer] PRVT OPTIONS JONATHON Discharge Planning Comments: Have attempted to meet with patient several times today and she has been in the OR, will try again later. CM will continue to follow and assist with discharge planning/needs. Training Mgr: Colleen Sabillon DCPIA - Discharge Planning Initial Assessment Updated by [email or web address]: Colleen Sabillon on 01/21/19 11:13 am * Is the patient Alert and Oriented? Yes * How many steps to enter\exit or inside your home? 0/0 * PCP Laurita Gonzalez with [facility] * Pharmacy [facility] [place] * Preadmission Environment Home with Family * ADLs Independent * Equipment None * List name and contact numbers for known caregivers / representatives who currently or will assist patient after discharge: Justus Headley - [facility] - [phone] * Verbal permission to speak to the caregivers and representatives has been obtained from the patient. Yes * Community resources currently utilized None * Additional services required to return to the preadmission environment? No * Can the patient safely return to the preadmission environment? Yes * Has this patient been hospitalized within the prior 30 days at any hospital? No Last DP export: 01/21/19 10:16 a Patient Name: JUANCHO HEADLEY Page [id number] at 1730 All edits/amendments must be made on the electronic document DICTATION DATE: 01/29/191729 TECHNICAL SPECIALIST: RANDY 01/29/191729 [facility]#: [id number] [place] DATE:01/29/19 STATUS: DIS IN [facility] [address] [place] [address] END OF REPORT
== END 2019-01-29 12:22 | disposition home or self-care (01) | DRG 329 ==
LOC: D.ER 22:46 → D.MS 01-17 02:36
PROVIDERS: Emergency Medicine; Family Medicine; Internal Medicine Nephrology; Surgery; ADMIT Family Medicine Adult Medicine; ATTEND Family Medicine Adult Medicine
PROC: 0DQB0ZZ Repair Ileum, Open Approach (ICD-10-PCS; principal; 2019-01-20 14:45)
PROC: 0DBA0ZZ Excision of Jejunum, Open Approach (ICD-10-PCS; 2019-01-20 14:45)
DX: K56.609 Unspecified intestinal obstruction, unspecified as to partial versus complete obstruction (principal); K63.1 Perforation of intestine (nontraumatic); E43 Unspecified severe protein-calorie malnutrition; I26.99 Other pulmonary embolism without acute cor pulmonale; D62 Acute posthemorrhagic anemia; N39.0 Urinary tract infection, site not specified; K52.9 Noninfective gastroenteritis and colitis, unspecified; K76.0 Fatty (change of) liver, not elsewhere classified; E11.65 Type 2 diabetes mellitus with hyperglycemia; I10 Essential (primary) hypertension; K21.9 Gastro-esophageal reflux disease without esophagitis; E66.9 Obesity, unspecified; Z68.29 Body mass index [BMI] 29.0-29.9, adult; M19.90 Unspecified osteoarthritis, unspecified site; D50.9 Iron deficiency anemia, unspecified; T18.4XXA Foreign body in colon, initial encounter

== ENCOUNTER 2019-02-02 06:33 | Inpatient (IN) | payer MEDICAID ==
[~2019-02-02] VITALS: Ht 177.8 cm; Wt 84.1 kg
[~2019-02-02 06:33] MED LIST changes: +LEVOFLOXACIN500 MG PO; -OZEMPIC; +OZEMPIC SQ; +VOLTAREN100 GM
[2019-02-02 07:06] LABS: BASOPHILS 0.1 % (0-2); EOSINOPHILS 7.1 % (0-7); HEMATOCRIT 27.1 % (36.0-48.0); HEMOGLOBIN 8.8 g/dL (12-16); IMMATURE GRANULOCYTES 0.6 % (0-5); LYMPHOCYTES 15.7 % (15-50); MCH 24.3 pg (26.0-34.0); MCHC 32.5 g/dL (31.0-37.0); MCV 74.9 fL (80.0-100.0); MEAN PLATELET VOLUME 8.9 fL (7.4-10.4); MONOCYTES 6.9 % (2-11); NEUTROPHILS 69.6 % (40-80); PLATELET COUNT 657 10x3/uL (130-400); RBC 3.62 10x6/uL (4.00-5.40); RDW 17.6 % (11.5-14.5); WBC 14.4 10x3/uL (4.8-10.8)
[2019-02-02 07:29] LABS: ALBUMIN 2.9 g/dL (3.4-5.0); ALKALINE PHOSPHATASE 78 U/L (46-116); ALT (SGPT) 14 U/L (10-68); BILIRUBIN - TOTAL 0.54 mg/dL (0.2-1.3); CALC OSMOLALITY 278 mosm/kg (275-300); CALCIUM 9.3 mg/dL (8.5-10.1); CARBON DIOXIDE 25.5 mmol/L (21.0-32.0); CHLORIDE - SERUM 102 mmol/L (98-107); CREATININE - SERUM 0.7 mg/dL (0.6-1.3); GLUCOSE 193 mg/dL (74-106); PROTEIN - SERUM 7.8 g/dL (6.4-8.2); SODIUM 137 mmol/L (136-145); UREA NITROGEN 12 mg/dL (7-18); eGFR NON AFRICAN AMERICAN > 90 mL/min (90-120)
[2019-02-02 07:32] LABS: AMYLASE - SERUM 69 U/L (25-115); LIPASE 119 U/L (73-393)
[2019-02-02 07:36] LABS: TROPONIN-I < 0.017 ng/mL (0.000-0.060)
[2019-02-02 08:47] LABS: APPEARANCE CLEAR (CLEAR); BACTERIA FEW /hpf (NEGATIVE); BILIRUBIN NEGATIVE (NEGATIVE); COLOR YELLOW (YELLOW); EPITHELIAL CELLS 0-5 /hpf (0-5); GLUCOSE NEGATIVE (NEGATIVE); KETONE NEGATIVE (NEGATIVE); MUCUS <1+ /lpf (NONE SEEN); NITRITE NEGATIVE (NEGATIVE); PROTEIN NEGATIVE (NEGATIVE); RED CELLS - URINE 0-5 /hpf (0-5); UROBILINOGEN NORMAL (NORMAL); WHITE CELLS - URINE 0-5 /hpf (NEGATIVE)
--- NOTE | 2019-02-02 09:40 | NUR ---
RECEIVED REPORT FROM JUANCHO IN ER. PATIENT TO UNIT SOON.
--- NOTE | 2019-02-02 10:17 | NUR ---
PATIENT ARRIVED TO UNIT AT APPROXIMATELY 1000 VIA GERNEY. PATIENT ABLE TO TRANSFER SELF TO BED. PATIENT WITH MALE VISITOR AT BEDSIDE. PATIENT IS ALERT/ORIENTED. RESP EVEN AND UNLABORED. PATIENT REPORTS PAIN TO BILATERAL SIDES OF ABD INCISION. TOTAL OF 22 CLIPS TO ABD. NO ACUTE DISTRESS.
[2019-02-02] MEDS ORDERED: ZYRTEC10 MG PO (10:33)
--- NOTE | 2019-02-02 11:35 | NUR ---
MEDICATED FOR NAUSEA AT THIS TIME. NO DISTRESS.
[2019-02-02 13:24] VITALS: BP 129/81; BMI 26.7
[2019-02-02 13:47] VITALS: BP 129/81
--- NOTE | 2019-02-02 15:20 | NUR ---
SUPERVISOR HOME ECONOMICS MORPHINE SET UP FOR PATIENT AT THIS TIME. NO DISTRESS.
[2019-02-02 17:13] VITALS: BP 128/76
--- NOTE | 2019-02-02 19:09 | NUR ---
RECIEVED BEDSIDE SHIFT REPORT.ALERT AND ORIENTED X4. UP AD RICCARDO. SURGICAL SITE TO MID ABD WITH VAHE INTACT. IV TO RIGHT WRIST WITH NS AT 150 AND AUTOMOBILE UPHOLSTERER AT 1-10-4. FAMILY AT BEDSIDE TAKING HER HAIR DOWN. REMAINS NPO. DENIES ANY NEEDS AT THIS TIME. WILL CONT. POC.
[2019-02-02 20:00] VITALS: BP 130/82
[2019-02-03] VITALS (7 sets, daily range): BP systolic 120–138; BP diastolic 72–86; BMI 26.6
[2019-02-03 05:35] LABS: ALBUMIN 2.4 g/dL (3.4-5.0); ALKALINE PHOSPHATASE 66 U/L (46-116); ALT (SGPT) 11 U/L (10-68); BILIRUBIN - TOTAL 0.48 mg/dL (0.2-1.3); CALCIUM 8.7 mg/dL (8.5-10.1); CARBON DIOXIDE 27.6 mmol/L (21.0-32.0); CHLORIDE - SERUM 105 mmol/L (98-107); CREATININE - SERUM 0.7 mg/dL (0.6-1.3); MAGNESIUM - SERUM 1.8 mg/dL (1.8-2.4); PHOSPHOROUS 5.3 mg/dL (2.5-4.9); POTASSIUM - SERUM 3.6 mmol/L (3.5-5.1); PROTEIN - SERUM 6.5 g/dL (6.4-8.2); SODIUM 140 mmol/L (136-145); eGFR NON AFRICAN AMERICAN > 90 mL/min (90-120)
[2019-02-03 05:36] LABS: CALC OSMOLALITY 277 mosm/kg (275-300); GLUCOSE 110 mg/dL (74-106); UREA NITROGEN 8 mg/dL (7-18)
[2019-02-03 06:46] LABS: BASOPHILS 0.3 % (0-2); HEMATOCRIT 23.1 % (36.0-48.0); IMMATURE GRANULOCYTES 0.5 % (0-5); MCH 23.9 pg (26.0-34.0); MCHC 31.6 g/dL (31.0-37.0); MCV 75.5 fL (80.0-100.0); MONOCYTES 7.7 % (2-11); NEUTROPHILS 55.5 % (40-80); PLATELET COUNT 593 10x3/uL (130-400); RBC 3.06 10x6/uL (4.00-5.40); RDW 17.3 % (11.5-14.5)
[2019-02-03 06:52] LABS: WBC 10.4 10x3/uL (4.8-10.8)
[2019-02-03 06:53] LABS: HEMOGLOBIN 7.3 g/dL (12-16)
--- NOTE | 2019-02-03 07:35 | NUR ---
REPORT RECIEVED. PT HAS A R WRIST PIV INFUSING NS @ 125 AND A DILUDID FORM SETTER STEEL FORMS @ 0.2/02/14. CALLED DR MEHTA ABOUT PTS HGB OF 7.3. RR EVEN AND UNLABORED. PT COMPLAINS OF A HEADACHE THAT HAS BEEN BOTHERING HER ALL NIGHT. BED LOCKED AND IN LOWEST POSITION, CALL LIGHT WITHIN REACH. WILL CTM
[2019-02-03 08:14] LABS: CALC OSMOLALITY 277 mosm/kg (275-300); CALCIUM 8.8 mg/dL (8.5-10.1); CARBON DIOXIDE 24.3 mmol/L (21.0-32.0); CHLORIDE - SERUM 105 mmol/L (98-107); CREATININE - SERUM 0.7 mg/dL (0.6-1.3); GLUCOSE 134 mg/dL (74-106); POTASSIUM - SERUM 3.7 mmol/L (3.5-5.1); SODIUM 139 mmol/L (136-145); UREA NITROGEN 8 mg/dL (7-18); eGFR NON AFRICAN AMERICAN > 90 mL/min (90-120)
[2019-02-03 08:15] LABS: APTT 31.1 SECONDS (22.8-39.4); INR 1.27 (0.85-1.17); PROTIME 15.4 SECONDS (11.6-15.0)
--- NOTE | 2019-02-03 14:15 | NUR ---
I have reviewed this patient and I concur with the Shift Assessment completed by the Licensed Practical Nurse today this shift.
--- NOTE | 2019-02-03 20:00 | NUR ---
ALERT RESTING IN BED C/O N/V ZOFRAN GIVEN, DILAUDID HUMAN RESOURCES TRAINER IN USE FOR PAIN CONTROL, ABD NOTED TO BE DISTENDED WITH HYPOACTIVE BOWEL SOUNDS, REPORTS PASSING GAS, SEE SHIFT ASSESSMENT, CALL LIGHT IN REACH
[2019-02-04 04:00] VITALS: BP 134/85
[2019-02-04 06:32] LABS: BASOPHILS 0.3 % (0-2); HEMATOCRIT 22.1 % (36.0-48.0); IMMATURE GRANULOCYTES 0.3 % (0-5); LYMPHOCYTES 17.9 % (15-50); MCH 23.9 pg (26.0-34.0); MCHC 32.1 g/dL (31.0-37.0); MCV 74.4 fL (80.0-100.0); MEAN PLATELET VOLUME 9.3 fL (7.4-10.4); MONOCYTES 8.9 % (2-11); NEUTROPHILS 65.6 % (40-80); PLATELET COUNT 591 10x3/uL (130-400); RBC 2.97 10x6/uL (4.00-5.40); RDW 17.1 % (11.5-14.5)
[2019-02-04 06:43] LABS: HEMOGLOBIN 7.1 g/dL (12-16)
[2019-02-04 06:56] LABS: ANION GAP 12.8 mmol/L (8-16); CALCIUM 8.8 mg/dL (8.5-10.1); CARBON DIOXIDE 25.8 mmol/L (21.0-32.0); MAGNESIUM - SERUM 1.9 mg/dL (1.8-2.4); POTASSIUM - SERUM 3.6 mmol/L (3.5-5.1)
[2019-02-04 07:10] LABS: CREATININE - SERUM 2.1 mg/dL (0.6-1.3)
[2019-02-04 08:00] VITALS: BP 142/87
[2019-02-04 12:04] VITALS: BP 139/79
[2019-02-04 15:07] VITALS: BP 154/90
--- NOTE | 2019-02-04 16:14 | NUR ---
IV PATENT. FAMILY AT BS. CALL LIGHT IN REACH. WILL CONT. PLAN OF CARE.
[2019-02-04 20:00] VITALS: BP 159/78
--- NOTE | 2019-02-04 20:00 | NUR ---
ALERT RESTING IN BED N/V AT THIS TIME, DYLONFRBC GIVEN , REPORTS HAVING SEVERAL BMS TODAY, SEE SHIFT ASSESSMENT CALL LIGHT IN REACH
[2019-02-05] VITALS: BP 146/82
[2019-02-05 04:00] VITALS: BP 154/96
[2019-02-05 05:38] LABS: BASOPHILS 0.4 % (0-2); EOSINOPHILS 1.2 % (0-7); IMMATURE GRANULOCYTES 0.4 % (0-5); LYMPHOCYTES 8.9 % (15-50); MCHC 33.1 g/dL (31.0-37.0); MCV 75.6 fL (80.0-100.0); MEAN PLATELET VOLUME 9.4 fL (7.4-10.4); NEUTROPHILS 79.1 % (40-80); PLATELET COUNT 546 10x3/uL (130-400); RBC 3.56 10x6/uL (4.00-5.40); RDW 16.8 % (11.5-14.5); WBC 11.4 10x3/uL (4.8-10.8)
[2019-02-05 05:45] LABS: HEMATOCRIT 26.9 % (36.0-48.0); HEMOGLOBIN 8.9 g/dL (12-16)
[2019-02-05 05:53] LABS: ANION GAP 12.4 mmol/L (8-16); CALCIUM 8.6 mg/dL (8.5-10.1); CARBON DIOXIDE 23.4 mmol/L (21.0-32.0); POTASSIUM - SERUM 3.8 mmol/L (3.5-5.1); VANCOMYCIN - RANDOM 25.7 ug/mL (10.0-20.0)
[2019-02-05 06:04] LABS: CREATININE - SERUM 3.3 mg/dL (0.6-1.3)
[2019-02-05 08:59] LABS: INR 1.22 (0.85-1.17); PROTIME 14.9 SECONDS (11.6-15.0)
[2019-02-05 09:00] LABS: APTT 38.4 SECONDS (22.8-39.4)
[2019-02-05 09:51] VITALS: BP 153/84
[2019-02-05 14:56] LABS: MAGNESIUM - SERUM 2.1 mg/dL (1.8-2.4); PHOSPHOROUS 5.1 mg/dL (2.5-4.9)
--- NOTE | 2019-02-05 15:19 | NUR ---
NUTRITION F/U RECEIVED ORDER TO START TPN. STARTED TPN AT 40 CC/HR WITH INTRALIPIDS 20%//250 CC Q 48 HOURS. ADDED MAG AND PHOS TO AM LABS X 4 DAYS. WILL CONTINUE TO MONITOR LABS AND ADJUST TPN NEEDED. ENTERED NURSING MESSAGE TO DECREASE IV FLUIDS TO 60 CC/HR WHEN TPN STARTS. RD FOLLOWING
--- NOTE | 2019-02-05 15:51 | MORECARE ---
CASE MANAGEMENT DISCHARGE SUMMARY PATIENT: TARA PEREZ UNIT: [id number] ADM DATE: 02/02/19 AGE: 54 : 67 SEX: F ROOM/BED: D.2107 AUTHOR: DENIS HENSON PHYSICIAN: REFERRING PHYSICIAN: GUTIERREZ MEHTA MD DATE OF SERVICE: 02/05/19 Discharge Plan Patient Name: TARA PEREZ Facility: [facility]:[place] : 1965 Planned Disposition: Home Anticipated Discharge Date: Discharge Date: Expected LOS: Initial Reviewer: [email or web address] Initial Review Date: 02/05/2019 Generated: 02/05/19 4:50 pm Comments DCP- Discharge Planning Updated by [email or web address]: Tara Nette on 02/05/19 2:[address] Patient Name: TARA PEREZ Admission Status: ER Accout number: [id number] Admission Date: 02-02-2019 : 1965 Admission Diagnosis:POSTPROC INTESTINAL OBST, UNSP TO PARTIAL VERSUS COM Attending: GUTIERREZ MEHTA Current LOS: 3 Anticipated DC Date: Planned Disposition: Home Primary [facility] JONATHON Discharge Planning Comments: CM MET WITH PATIENT ABOUT DC PLANNING/NEEDS. PATIENT STATES PLANS TO DC TO HOME WITH FAMILY. STATES NO NEEDS. DISCUSSED HH AND REHAB BUT STATES IS NOT NEEDED. CM TO FOLLOW AND ASSIST. Fish Conservationist: Tara Perdue DCPIA - Discharge Planning Initial Assessment Updated by [email or web address]: Tara Perdue on 02/05/19 3:41 pm * Is the patient Alert and Oriented? Yes * [facility]CP [facility] * Pharmacy [facility] * Preadmission Environment Home with Family * ADLs Independent * Equipment None * Community resources currently utilized None * Additional services required to return to the preadmission environment? No * Can the patient safely return to the preadmission environment? Yes * Has this patient been hospitalized within the prior 30 days at any hospital? No Patient Name: TARA PEREZ Page [phone] at 1551 All edits/amendments must be made on the electronic document DICTATION DATE: 02/05/19 1550 HOUSE DETECTIVE: RANDY 02/05/19 1550 RPT#: [id number] DC DATE: STATUS: ADM IN [facility] [address] [place] [address] END OF REPORT
[2019-02-05 17:27] VITALS: BP 150/84
[2019-02-05 17:46] VITALS: Ht 177.8 cm; Wt 84.1 kg
--- NOTE | 2019-02-05 19:15 | NUR ---
BEDSIDE REPORT RECEIVED FROM DAY SHIFT, PT CARE ASSUMED. INTRODUCED SELF AND WROTE NAME ON BOARD. PT SITTING UP IN BED, AAOX4, WATCHING TV. DENIES ANY NEEDS AT THIS TIME. BED IN LOWEST POSITION, SR X2, CALL LIGHT WITHIN REACH. WILL CONTINUE TO MONITOR.
[2019-02-05 20:00] VITALS: BP 160/93
[2019-02-06] VITALS: BP 155/84
[2019-02-06 04:00] VITALS: BP 156/86
[2019-02-06 06:31] LABS: BASOPHILS 0.4 % (0-2); EOSINOPHILS 3.6 % (0-7); HEMATOCRIT 26.5 % (36.0-48.0); HEMOGLOBIN 8.5 g/dL (12-16); IMMATURE GRANULOCYTES 0.4 % (0-5); LYMPHOCYTES 11.9 % (15-50); MCH 24.6 pg (26.0-34.0); MCHC 32.1 g/dL (31.0-37.0); MCV 76.6 fL (80.0-100.0); MEAN PLATELET VOLUME 9.3 fL (7.4-10.4); MONOCYTES 11.2 % (2-11); NEUTROPHILS 72.5 % (40-80); PLATELET COUNT 472 10x3/uL (130-400); RBC 3.46 10x6/uL (4.00-5.40); RDW 17.2 % (11.5-14.5); WBC 11.2 10x3/uL (4.8-10.8)
[2019-02-06 06:52] LABS: ANION GAP 11.6 mmol/L (8-16); CALCIUM 8.5 mg/dL (8.5-10.1); CARBON DIOXIDE 24.3 mmol/L (21.0-32.0); CREATININE - SERUM 3.5 mg/dL (0.6-1.3); MAGNESIUM - SERUM 1.9 mg/dL (1.8-2.4); PHOSPHOROUS 4.1 mg/dL (2.5-4.9); POTASSIUM - SERUM 3.9 mmol/L (3.5-5.1)
[2019-02-06 08:00] VITALS: BP 150/92
--- NOTE | 2019-02-06 08:47 | NUR ---
NUTRITION F/U CHART/LABS REVIEWED. TPN ADJUSTED AND RENEWED. WILL CONTINUE TO MONITOR LABS AND ADJUST TPN NEEDED. CLEAR LIQUID DIET TO START AT LUNCH. RD FOLLOWING
[2019-02-06 12:00] VITALS: BP 160/96
[2019-02-06 16:00] VITALS: BP 170/100
--- NOTE | 2019-02-06 18:55 | NUR ---
EVENING ROUNDS COMPLETE. PT SITTING UP IN BED, NO SIGNS OF DISTRESS. AAOX4, NO C/O PAIN. VSS. CL IN REACH, BED IN LOWEST POSITION. CONT WITH POC.
[2019-02-06 20:00] VITALS: BP 172/94
[2019-02-07] VITALS: BP 163/90
[2019-02-07 04:30] VITALS: BP 177/96
--- NOTE | 2019-02-07 05:20 | NUR ---
PT C/O NAUSEA. PRN ZOFRAN GIVEN. CONT WITH POC.
[2019-02-07 05:34] LABS: BASOPHILS 0.5 % (0-2); EOSINOPHILS 9.9 % (0-7); HEMATOCRIT 27.3 % (36.0-48.0); HEMOGLOBIN 8.5 g/dL (12-16); IMMATURE GRANULOCYTES 0.5 % (0-5); LYMPHOCYTES 14.9 % (15-50); MCH 24.8 pg (26.0-34.0); MCHC 31.1 g/dL (31.0-37.0); MCV 79.6 fL (80.0-100.0); MEAN PLATELET VOLUME 9.1 fL (7.4-10.4); MONOCYTES 11.1 % (2-11); NEUTROPHILS 63.1 % (40-80); PLATELET COUNT 467 10x3/uL (130-400); RBC 3.43 10x6/uL (4.00-5.40); RDW 17.4 % (11.5-14.5); WBC 12.3 10x3/uL (4.8-10.8)
--- NOTE | 2019-02-07 07:15 | NUR ---
PT SITTING UP IN BED. WATCHING TV. LEFT UPPER ARM PICC HAS TPN AND NS INFUSING. PT HAS NO FURTHER NEEDS AT THIS TIME. BED LOW. CL IN REACH.
[2019-02-07 08:20] VITALS: BP 173/93
[2019-02-07 09:10] LABS: ANION GAP 13.6 mmol/L (8-16); CALCIUM 8.7 mg/dL (8.5-10.1); CARBON DIOXIDE 24.4 mmol/L (21.0-32.0); CREATININE - SERUM 3.3 mg/dL (0.6-1.3); PHOSPHOROUS 4.9 mg/dL (2.5-4.9); VANCOMYCIN - RANDOM 12.3 ug/mL (10.0-20.0)
--- NOTE | 2019-02-07 12:00 | NUR ---
URINE COLLECTED AND TAKEN TO LAB
--- NOTE | 2019-02-07 12:02 | NUR ---
NUTRITION F/U CHART/LABS REVIEWED. TPN ADJUSTED AND RENEWED. WILL CONTINUE TO MONITOR LABS AND ADJUST TPN NEEDED. RD FOLLOWING
[2019-02-07 12:13] VITALS: BP 120/93
[2019-02-07 16:14] VITALS: BP 172/92
--- NOTE | 2019-02-07 16:22 | NUR ---
PT STATES NEPHROLOGY MD STATED TO HER THEY WERE GOING TO DC IVF. I STATED TO HER THAT [facility] PUT IN AN ORDER BUT I WILL CHECK. CALLED JD VILLAGOMEZ AND SHE STATES SHE WILL PUT IN ORDER TO DC IVF AND THAT NS IS NOT NEEDED WITH TPN.
--- NOTE | 2019-02-07 19:10 | NUR ---
EVENING ROUNDS COMPLETE, PT SITTING UP IN CHAIR. NO SIGNS OF DISTRESS. PT DENIES ANY PAIN AT TIME. AAOX4, VSS. CL IN REACH, BED IN LOWEST POSITON. CONT WITH POC.
[2019-02-07 20:00] VITALS: BP 132/82
[2019-02-08] VITALS: BP 180/96
[2019-02-08 04:00] VITALS: BP 170/88
[2019-02-08 05:12] LABS: BASOPHILS 0.5 % (0-2); EOSINOPHILS 12.2 % (0-7); HEMATOCRIT 26.2 % (36.0-48.0); HEMOGLOBIN 8.2 g/dL (12-16); IMMATURE GRANULOCYTES 0.5 % (0-5); LYMPHOCYTES 14.1 % (15-50); MCH 24.4 pg (26.0-34.0); MCHC 31.3 g/dL (31.0-37.0); MEAN PLATELET VOLUME 9.4 fL (7.4-10.4); MONOCYTES 13.4 % (2-11); NEUTROPHILS 59.3 % (40-80); PLATELET COUNT 466 10x3/uL (130-400); RBC 3.36 10x6/uL (4.00-5.40); RDW 17.3 % (11.5-14.5); WBC 11.4 10x3/uL (4.8-10.8)
[2019-02-08 06:47] LABS: ANION GAP 13.6 mmol/L (8-16); CALCIUM 8.5 mg/dL (8.5-10.1); CARBON DIOXIDE 25.3 mmol/L (21.0-32.0); CREATININE - SERUM 3.3 mg/dL (0.6-1.3); MAGNESIUM - SERUM 1.9 mg/dL (1.8-2.4); PHOSPHOROUS 4.8 mg/dL (2.5-4.9); POTASSIUM - SERUM 3.9 mmol/L (3.5-5.1)
[2019-02-08 09:17] VITALS: BP 177/96
--- NOTE | 2019-02-08 09:25 | NUR ---
NUTRITION F/U CHART/LABS REVIEWED. WILL CONTINUE CURRENT TPN REGIMEN. MONITOR LABS AND ADJUST TPN NEEDED. RD FOLLOWING
[2019-02-08 12:29] VITALS: BP 185/99
--- NOTE | 2019-02-08 13:12 | NUR ---
RECEIVED A/A/OX4. SITTING UP IN BED WATCHING TV. NO REQUESTS VOICED BUT STATES SHE HAS BEEN NAUSEATED SOME WITH NO EMESIS. ASSESSMENT COMPLETED AND WILL CONTINUE POC. CALL LIGHT IN REACH. PICC LINE PATENT TO UPPER LEFT ARM WITHOUT REDNESS OR EDEMA.
--- NOTE | 2019-02-08 13:34 | NUR ---
I have reviewed this patient and I concur with the Shift Assessment completed by the Licensed Practical Nurse today this shift.
[2019-02-08 15:57] VITALS: BP 159/100
--- NOTE | 2019-02-08 18:55 | NUR ---
EVENING ROUNDS COMPLETE, PT SITTING UP IN BED. FAMILY AT BEDSIDE. NO SIGNS OF DISTRESS. PT DENIES ANY PAIN AT THIS TIME. AAOX4, VSS. CL IN REACH, BED IN LOWEST POSITION. CONT WITH POC
[2019-02-08 20:00] VITALS: BP 178/92
[2019-02-09] VITALS: BP 179/99
[2019-02-09 04:00] VITALS: BP 175/93
[2019-02-09 04:40] LABS: BASOPHILS 0.6 % (0-2); EOSINOPHILS 12.9 % (0-7); HEMATOCRIT 26.5 % (36.0-48.0); HEMOGLOBIN 8.3 g/dL (12-16); IMMATURE GRANULOCYTES 0.5 % (0-5); LYMPHOCYTES 18.6 % (15-50); MCH 24.3 pg (26.0-34.0); MCHC 31.3 g/dL (31.0-37.0); MCV 77.5 fL (80.0-100.0); MEAN PLATELET VOLUME 9.1 fL (7.4-10.4); MONOCYTES 11.9 % (2-11); NEUTROPHILS 55.5 % (40-80); PLATELET COUNT 457 10x3/uL (130-400); RBC 3.42 10x6/uL (4.00-5.40); RDW 17.1 % (11.5-14.5); WBC 11.8 10x3/uL (4.8-10.8)
[2019-02-09 04:56] LABS: ANION GAP 12.1 mmol/L (8-16); CARBON DIOXIDE 27.4 mmol/L (21.0-32.0); CREATININE - SERUM 3.2 mg/dL (0.6-1.3); MAGNESIUM - SERUM 2.2 mg/dL (1.8-2.4); POTASSIUM - SERUM 3.5 mmol/L (3.5-5.1)
[2019-02-09 08:36] VITALS: BP 166/89
[2019-02-09 12:17] VITALS: BP 168/99
--- NOTE | 2019-02-09 14:01 | NUR ---
NUTRITION F/U CHART/LABS REVIEWED. WILL CONTINUE CURRENT TPN REGIMEN. NOTE FL DIET STARTED. ADDED MAG AND PHOS TO AM LAB DRAW X [address] FOLLOWING
[2019-02-09 16:45] VITALS: BP 162/85
--- NOTE | 2019-02-09 16:59 | NUR ---
ALERT AND ORIENTED X4. SITTING UP IN BED. SHOWER AND LINEN CHANGE COMPLETE. TOLERATING SOLID FOODS. DENIES ANY NEEDS AT THIS TIME. CONTINUE PLAN OF CARE AND SAFETY PRECAUTIONS.
--- NOTE | 2019-02-09 19:10 | NUR ---
PATIENT LAYING IN BED. NO COMPLAINTS AT THIS TIME. NO DISTRESS NOTED.
[2019-02-09 20:00] VITALS: BP 172/87
[2019-02-10] VITALS: BP 168/94
[2019-02-10 04:30] VITALS: BP 168/94
--- NOTE | 2019-02-10 05:54 | NUR ---
I have reviewed this patient and I concur with the Shift Assessment completed by the Licensed Practical Nurse today this shift.
[2019-02-10 06:50] LABS: BASOPHILS 0.5 % (0-2); EOSINOPHILS 11.3 % (0-7); HEMOGLOBIN 8.7 g/dL (12-16); IMMATURE GRANULOCYTES 0.4 % (0-5); LYMPHOCYTES 16.5 % (15-50); MCH 25.1 pg (26.0-34.0); MCHC 32.2 g/dL (31.0-37.0); MEAN PLATELET VOLUME 9.7 fL (7.4-10.4); NEUTROPHILS 59.3 % (40-80); PLATELET COUNT 514 10x3/uL (130-400); RBC 3.46 10x6/uL (4.00-5.40); RDW 17.4 % (11.5-14.5); WBC 11.8 10x3/uL (4.8-10.8)
[2019-02-10 07:06] LABS: ANION GAP 9.9 mmol/L (8-16); CALCIUM 8.9 mg/dL (8.5-10.1); CARBON DIOXIDE 28.5 mmol/L (21.0-32.0); MAGNESIUM - SERUM 2.2 mg/dL (1.8-2.4); PHOSPHOROUS 4.3 mg/dL (2.5-4.9); POTASSIUM - SERUM 3.4 mmol/L (3.5-5.1)
--- NOTE | 2019-02-10 07:20 | NUR ---
RECIEVED REPORT. RESTING IN BED WITH EYES CLOSED. AROUSES EASILY. TPN INFUSING LT ARM PICC LINE. FOLLOW ELECTROLYTE PROTOCOL, TREAT POTASSIUM 3.4. DENIES ANY NEEDS AT THIS TIME. CONTINUE PLAN OF CARE AND SAFETY PRECAUTIONS.
[2019-02-10 08:08] VITALS: BP 168/91
--- NOTE | 2019-02-10 09:12 | NUR ---
NUTRITION F/U CHART/LABS REVIEWED. ADJUSTED AND RENEWED TPN. HOPEFULLY DC TPN WHEN ORAL INTAKE ADEQUATE. RD FOLLOWING
[2019-02-10 11:54] VITALS: BP 183/101
--- NOTE | 2019-02-10 12:00 | NUR ---
ALERT AND ORIENTED X4. SITTING UP IN BED. BP-189/103. NOTIFY OF ELEVATED BP.
[2019-02-10] MEDS ORDERED: PHENERGAN25 M1 PO (16:05)
[2019-02-10 16:13] VITALS: BP 176/93
[2019-02-10 20:00] VITALS: BP 181/94
[2019-02-11 00:30] VITALS: BP 171/85
--- NOTE | 2019-02-11 03:56 | NUR ---
I have reviewed this patient and I concur with the Shift Assessment completed by the Licensed Practical Nurse today this shift.
[2019-02-11 04:30] VITALS: BP 151/81
[2019-02-11 06:12] LABS: BASOPHILS 0.5 % (0-2); EOSINOPHILS 13.9 % (0-7); HEMATOCRIT 23.9 % (36.0-48.0); IMMATURE GRANULOCYTES 0.6 % (0-5); MCHC 31.4 g/dL (31.0-37.0); MCV 76.4 fL (80.0-100.0); MEAN PLATELET VOLUME 9.9 fL (7.4-10.4); MONOCYTES 12.5 % (2-11); NEUTROPHILS 52.5 % (40-80); PLATELET COUNT 456 10x3/uL (130-400); RBC 3.13 10x6/uL (4.00-5.40); RDW 17.2 % (11.5-14.5); WBC 10.7 10x3/uL (4.8-10.8)
[2019-02-11 06:26] LABS: ANION GAP 11.7 mmol/L (8-16); CALCIUM 8.6 mg/dL (8.5-10.1); CARBON DIOXIDE 26.8 mmol/L (21.0-32.0); CREATININE - SERUM 2.9 mg/dL (0.6-1.3); MAGNESIUM - SERUM 1.9 mg/dL (1.8-2.4); PHOSPHOROUS 4.5 mg/dL (2.5-4.9); POTASSIUM - SERUM 3.5 mmol/L (3.5-5.1)
[2019-02-11 06:40] LABS: HEMOGLOBIN 7.5 g/dL (12-16)
[2019-02-11 07:35] VITALS: BP 156/86
--- NOTE | 2019-02-11 08:40 | NUR ---
NUTRITION F/U CHART/LABS REVIEWED. WILL CONTINUE CURRENT TPN REGIMEN, DC PER SURGERY. MAG AND PHOS ADDED TO AM LAB DRAW. RD FOLLOWING
--- NOTE | 2019-02-11 10:02 | NUR ---
ORDER RECEIVED FOR PT PICC LINE TO BE DC DUE TO PT DISCHARGING HOME. LENGTH OF LINE VERTIFY BY VASCULAR ACCESS NURSE NOTES OF 45 CM. SITE OF LINE IS LEFT UPPER ARM. PROCEDURE EXPLAINED TO PT. PT IN SUPINE POSITON WITH L ARM AT 45 DEGREE FROM BODY. HANDS WASHED. GLOVES DONNED. DRESSING REMOVED WITH GUARD. SITE CLEAN AND DRY WITH NO SIGNS OF INFECTION. SITE CLEANED WITH BETADINE. PT INSTRUCTED TO TAKE A DEEP BREATHE AND BEAR DOWN. LINE REMOVED AT 1 INCH INCREMENTS PARALLE TO THE SKIN. LINE SUCCESSFULLY REMOVED WITH TIP INTACT AT 45 CMS. NO SIGNS OF INFECTION NOR SHEARING OF TIP NOTED. PRESSURE HELD FOR 5 MINS. THEN GLOVES CHANGED AND BETADINE OINTMENT APPLIED. ALSO 2X2 WITH TEGADERM. INSTRUCTIONS GIVEN TO PT ABOUT INFECTION, DRESSING CARE. PT VERBALIZES UNDERSTANDING.
--- NOTE | 2019-02-11 10:39 | NUR ---
ALERT AND ORIENTED X4. SITTING UP ON SIDE OF BED. GINNY DE LA ROSACLINICAL COORDINATOR DC LT ARM PICC LINE. DISCHARGE INSTRUCTIONS GIVEN VERBALLY AND WRITTEN. DISCHARGE PAPERS SIGNED ON CHART. ESCORT TO RIDE VIA WHEELCHAIR. REMAINS FREE FROM INJURY. 6 STERI STRIPS ON ABDOMEN INTACT.
--- NOTE | 2019-02-11 12:27 | MORECARE ---
CASE MANAGEMENT DISCHARGE SUMMARY PATIENT: TARA PEREZ UNIT: [id number] ADM DATE: 02/02/19 AGE: 54 : 67 SEX: F ROOM/BED: D.2103 AUTHOR: NATIVIDAD,DOC PHYSICIAN: REFERRING PHYSICIAN: GUTIERREZ MEHTA MD DATE OF SERVICE: 02/11/19 Discharge Plan Patient Name: TARA PEREZ Facility: [facility]:[place] : 1965 Planned Disposition: Home Anticipated Discharge Date: 02/11/19 Discharge Date: 02/11/2019 Expected LOS: 9 Initial Reviewer: [email or web address] Initial Review Date: 02/05/2019 Generated: 02/11/19 1:26 pm Comments DCP- Discharge Planning Updated by [email or web address]: Dino Vergara on 02/11/19 11:[address] Patient Name: TARA PEREZ Encounter No: [id number] : 1965 Primary Insurance: [employer] PRVT OPTIONS JONATHON Anticipated DC Date: 02-11-2019 Planned Disposition: Home DCP follow-up note: CM RECEIVED DISCHARGE ORDER, MET WITH PT IN ROOM. CM DISCUSSED AVAILABILITY OF HOME HEALTH, REHAB SERVICES AND MEDICAL EQUIPMENT. PT DENIES DISCHARGE NEEDS. FAMILY TO TRANSPORT HOME AT DISCHARGE. INGOT SUPERVISOR NURSE NOTIFIED. Dino Vergara,. 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 PATIENT STATES PLANS TO DC TO HOME WITH FAMILY. STATES NO NEEDS. DISCUSSED HH AND REHAB BUT STATES IS NOT NEEDED. CM TO FOLLOW AND ASSIST. Leg Man: Tara Perdue DCPIA - Discharge Planning Initial Assessment Updated by [email or web address]: Tara Perdue on 02/05/19 3:41 pm * Is the patient Alert and Oriented? Yes * [facility]CP [facility] * Pharmacy [facility] [address] * Preadmission Environment Home with Family * ADLs Independent * Equipment None * Community resources currently utilized None * Additional services required to return to the preadmission environment? No * Can the patient safely return to the preadmission environment? Yes * Has this patient been hospitalized within the prior 30 days at any hospital? No Last DP export: 02/05/19 2:51 p Patient Name: TARA PEREZ Page 14747 at 1227 All edits/amendments must be made on the electronic document DICTATION DATE: 02/11/19 1226 COMPUTING ARCHITECT: RANDY 02/11/19 1226 RPT#: [id number] DC DATE:02/11/19 STATUS: DIS IN [facility] [address] [place] [address] END OF REPORT
--- NOTE | 2019-02-12 06:59 | MORECARE ---
CASE MANAGEMENT DISCHARGE SUMMARY PATIENT: TARA PEREZ UNIT: [id number] ADM DATE: 02/02/19 AGE: 54 : 67 SEX: F ROOM/BED: D.2103 AUTHOR: NATIVIDAD,DOC PHYSICIAN: REFERRING PHYSICIAN: GUTIERREZ MEHTA MD DATE OF SERVICE: 02/12/19 Discharge Plan Patient Name: TARA PEREZ Facility: [facility]:[place] : 1965 Planned Disposition: Home Anticipated Discharge Date: 02/11/19 Discharge Date: 02/11/2019 Expected LOS: 9 Initial Reviewer: [email or web address] Initial Review Date: 02/05/2019 Generated: 02/12/19 7:59 am Comments DCP- Discharge Planning Updated by [email or web address]: Dino Vergara on 02/11/19 11:[address] Patient Name: TARA PEREZ Encounter No: [id number] : 1965 Primary Insurance: [employer]ON Anticipated DC Date: 02-11-2019 Planned Disposition: Home DCP follow-up note: CM RECEIVED DISCHARGE ORDER, MET WITH PT IN ROOM. CM DISCUSSED AVAILABILITY OF HOME HEALTH, REHAB SERVICES AND MEDICAL EQUIPMENT. PT DENIES DISCHARGE NEEDS. FAMILY TO TRANSPORT HOME AT DISCHARGE. COOKER LOADER NURSE NOTIFIED. Dino Vergara,. 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 PATIENT STATES PLANS TO DC TO HOME WITH FAMILY. STATES NO NEEDS. DISCUSSED HH AND REHAB BUT STATES IS NOT NEEDED. CM TO FOLLOW AND ASSIST. Parts Back Counter Man: Tara Perdue DCPIA - Discharge Planning Initial Assessment Updated by [email or web address]: Tara Perdue on 02/05/19 3:41 pm * Is the patient Alert and Oriented? Yes * PCP [facility] * Pharmacy [facility] [address] * Preadmission Environment Home with Family * ADLs Independent * Equipment None * Community resources currently utilized None * Additional services required to return to the preadmission environment? No * Can the patient safely return to the preadmission environment? Yes * Has this patient been hospitalized within the prior 30 days at any hospital? No Last DP export: 02/11/19 11:27 a Patient Name: TARA PEREZ Page [id number] at 0659 All edits/amendments must be made on the electronic document DICTATION DATE: 02/12/19657 ELECTRICIAN [employer] MAINTENANCE: RANDY 02/12/19657 RPT#: [id number] DC DATE:02/11/19 STATUS: DIS IN [facility] [address] [place] [address] END OF REPORT
== END 2019-02-11 10:41 | disposition home or self-care (01) | DRG 388 ==
LOC: D.ER 06:33 → D.M2 09:35
PROVIDERS: Emergency Medicine; Family Medicine; General Practice; Internal Medicine Nephrology; Radiology Diagnostic Radiology; ADMIT Surgery; ATTEND Surgery
DX: K91.30 Postprocedural intestinal obstruction, unspecified as to partial versus complete (principal); N00.9 Acute nephritic syndrome with unspecified morphologic changes; D62 Acute posthemorrhagic anemia; N17.9 Acute kidney failure, unspecified; E44.0 Moderate protein-calorie malnutrition; Y83.9 Surgical procedure, unspecified as the cause of abnormal reaction of the patient, or of later complication, without mention of misadventure at the time of the procedure; E11.9 Type 2 diabetes mellitus without complications; I10 Essential (primary) hypertension; E78.5 Hyperlipidemia, unspecified; D63.1 Anemia in chronic kidney disease; Z68.26 Body mass index [BMI] 26.0-26.9, adult

== ENCOUNTER → 2019-03-19 09:47 | Outpatient (CLI) | payer MEDICAID ==
[2019-02-05 17:46] VITALS: BMI 26.6
[~2019-03-19 09:47] MED LIST changes: +PHENERGAN; +PHENERGAN25 M1 PO; +XARELTO20 MG PO
[2019-03-19 10:36] LABS: CALC OSMOLALITY 279 mosm/kg (275-300); CALCIUM 8.7 mg/dL (8.5-10.1); CARBON DIOXIDE 28.5 mmol/L (21.0-32.0); CHLORIDE - SERUM 102 mmol/L (98-107); CREATININE - SERUM 0.7 mg/dL (0.6-1.3); GLUCOSE 81 mg/dL (74-106); POTASSIUM - SERUM 3.4 mmol/L (3.5-5.1); SODIUM 142 mmol/L (136-145); UREA NITROGEN 8 mg/dL (7-18); eGFR NON AFRICAN AMERICAN > 90 mL/min (90-120)
== END | disposition home or self-care (01) ==
LOC: D.LAB 09:47 → D.CT 10:30
PROVIDERS: ATTEND Surgery
DX: K56.609 Unspecified intestinal obstruction, unspecified as to partial versus complete obstruction (principal)

== ENCOUNTER 2019-04-02 09:36 | Outpatient (CLI) | payer MEDICAID ==
[~2019-04-02] VITALS: Ht 177.8 cm; Wt 81.8 kg
[~2019-04-02 09:36] MED LIST changes: -PHENERGAN; -XARELTO20 MG PO
[2019-04-02 10:52] VITALS: BP 145/81; Ht 177.8 cm; Wt 81.8 kg
[2019-04-02] MEDS ORDERED: XARELTO20 MG PO (10:59)
[2019-04-02] MEDS ORDERED: PHENERGAN (11:02)
== END 2019-04-02 15:20 | disposition home or self-care (01) ==
LOC: D.OPS 09:36
PROVIDERS: ATTEND Internal Medicine Hematology & Oncology
DX: D50.9 Iron deficiency anemia, unspecified (principal)

== ENCOUNTER → 2019-07-16 10:22 | Outpatient (CLI) | payer OTHER ==
[2019-04-02 10:52] VITALS: BMI 25.8
[~2019-07-16 10:22] MED LIST changes: +PHENERGAN; +XARELTO20 MG PO
== END | disposition home or self-care (01) ==
LOC: D.CT 10:22
PROVIDERS: ATTEND Surgery
DX: K56.609 Unspecified intestinal obstruction, unspecified as to partial versus complete obstruction (principal)

== ENCOUNTER 2019-11-19 08:00 | Outpatient (CLI) | payer OTHER ==
[2019-04-02 10:52] VITALS: BMI 25.8
== END 2019-11-19 23:59 | disposition home or self-care (01) ==
LOC: D.MAMMO 08:00
PROVIDERS: ATTEND Nurse Practitioner
DX: Z12.31 Encounter for screening mammogram for malignant neoplasm of breast (principal)

== ENCOUNTER → 2020-09-07 09:17 | Outpatient (CLI) | payer OTHER ==
[2019-04-02 10:52] VITALS: BMI 25.8
== END | disposition home or self-care (01) ==
LOC: D.CT 09:17
PROVIDERS: ATTEND Surgery
DX: R10.9 Unspecified abdominal pain (principal)